=== PATIENT | female | born 1945 | race Caucasian/White ===

== ENCOUNTER 2018-03-03 18:56 | Emergency (ER) | payer MEDICARE, OTHER ==
[2018-03-03 19:28] VITALS: BP 121/44
[2018-03-03] MEDS ORDERED: Ondansetron INJ* 2 MG/ML VIAL IV ONE (19:30)
[2018-03-03] MEDS ORDERED: NS 0.9% 1000 ML* 1,000 ML IV ONE (19:31)
--- NOTE | 2018-03-03 19:53 | UC ---
Beti Rosado Elizabeth, scribed for Reshma Hernandez MD on 03/03/18 at 1933 . General HPI - HPI Summary HPI Summary: This patient is a 72 year old F presenting to [facility] accompanied by her neighbor with a chief complaint of right hand a cat bite to right hand occurring this morning as nausea since 16:00. The patient reports that she has been under a lot of stress recently. She her recently , had to surrender her cats today, and is in the process of being evicted. The patient reports that her cats fought her when she tried to put them in cages and they bit her right hand and her left leg. The pt had progressive swelling and discoloration of the right hand and her neighbor convinced her to come. Pt states upon arrival to the she had need for BM. Pt went into bathroom - had large, diarrhea BM - no blood, no black. pt then repeated episodes of emesis. Pt became diaphoretic and pale. Pt's neighbor drove her to . Patient denies shortness of breath, chest pain, abdominal pain, or hematemesis. The patient has hx of HTN, diabetes, HCL. The patient takes Metformin and Glipizide. Patient denies hx of OH or CVA. Pt states tdap < 10 years Pt's medications reviewed - History of Current Complaint Stated Complaint: CAT ATTACK Time Seen by Provider: 03/03/18 19:18 Hx Obtained From: Patient Onset/Duration: Sudden Onset, Lasting Hours, Still Present Onset Severity: Mild Current Severity: None Pain Intensity: 0 Aggravating: nothing Alleviating: nothing Associated Signs & Symptoms: Positive: Edema - in right hand, Nausea, Vomiting, Other - cat bites on right hand, nausea. Negative: Chest Pain, Hematemesis - Allergy/Home Medications Allergies/Adverse Reactions: Allergies Allergy/AdvReac Type Severity Reaction Status Date / Time Penicillins Allergy Unknown Verified 03/03/18 19:47 Reaction Details Home Medications: Home Medications Atenolol 25 mg PO QPM 03/03/18 [History Confirmed 03/03/18] Lisinopril 10 mg PO QAM 03/03/18 [History Confirmed 03/03/18] Metformin HCl [Fortamet] 1,000 mg PO BID 03/03/18 [History Confirmed 03/03/18] PMH/Surg Hx/FS Hx/Imm Hx Previously Healthy: No Endocrine History: Diabetes Cardiovascular History: Hypertension Other Cardiovascular History: HCL - Surgical History Surgery Procedure, Year, and Place: knee surgery 2011 - Family History Known Family History: Positive: Hypertension, Diabetes - Social History Occupation: Retired Lives: Alone Alcohol Use: None Substance Use Type: None Smoking Status (MU): Never Smoked Tobacco Review of Systems Skin: Other - warmth, redness, cat bites on right hand Respiratory: Negative - negative shortness of breath Cardiovascular: Negative - negative chest pain Gastrointestinal: Vomiting, Nausea All Other Systems Reviewed And Are Negative: Yes Physical Exam - Summary Physical Exam Summary: Vital Signs Reviewed: Yes A+Ox3, pallor, mild diaphoresis. Eyes: Conjunctiva Clear, DEBORAH. EOM intact and full ENT: Hearing grossly normal TM x 2 clear, mmoist, uvula midline, no exudate, no erythema Neck: Positive: Supple Respiratory: Positive: No respiratory distress, No accessory muscle use + CTA throughout no w/r Cardiovascular: RRR nl s1, s2 no m/r CBT <2 sec mild bradycardia abd soft + BS nt/nd no guarding, no distension Musculoskeletal Exam: PLASENCIA x 4 without difficulty Strength Intact, ROM Intact Neurological: Positive: Alert, + sensation throughout Psychological: Positive: Normal Response To Family Skin: Positive: no rash, no ecchymosis, pallor, mild diaphoresis Right hand: Pt with multiple puncture wound right 3/4 fingers, and dorsum + ecchymosis, erythema and warmth Pt with discomfort with flexion 3 and 4 at PIP joints secind to edema Pt with small puncture x 2 to left lateral LE Triage Information Reviewed: Yes Vital Signs: Initial Vital Signs Temp 95.9 F 03/03/18 19:17 Pulse 55 03/03/18 19:17 Resp 18 03/03/18 19:17 BP 121/44 03/03/18 19:17 Pulse Ox 99 03/03/18 19:17 Diagnostics - EKG Cardiac Rate: NL, Bradycardia Cardiac Rhythm: Sinus: Normal - invert T wave 2, NO STEMI ST Segment: Normal Course/Dx - Course Course Of Treatment: Pt with DM. HTN, HLD - pt presents for eval of cat bite occuring earlier today. Pt withprogressive nausea since 4pm in UC pt with epsiode of diarrhea and repeated emesis with near syncope. Pt with edema and swelling right hand. Pt with pallor and diaphoresis - Differential Dx - Multi-Symptom Provider Diagnoses: cat bite. persistent vomiting. near syncope - Physician Notifications Discussed Patient Care With: Dr. Ingram - gave report 1930 - aware of plan to transfer Discharge - Sign-Out/Discharge Documenting (check all that apply): Discharge/Admit/Transfer - Discharge Plan Condition: Stable Disposition: HOME Discharge Disposition Comment: discharged by ambulance to ER Referrals: No Primary Care Phys,NOPCP [Primary Care Provider] - - Billing Disposition and Condition Condition: STABLE Disposition: Home The documentation as recorded by the Beti jacques Elizabeth accurately reflects the service I personally performed and the decisions made by me, Reshma Hernandez MD.
== END 2018-03-03 20:05 | disposition home or self-care (01) ==
LOC: UCEAST 18:56
DX: S60.572A Other superficial bite of hand of left hand, initial encounter (principal); W55.01XA Bitten by cat, initial encounter; Y93.9 Activity, unspecified; Y99.9 Unspecified external cause status; R11.2 Nausea with vomiting, unspecified; R55 Syncope and collapse
CPT/HCPCS: 93005; 99203; G0463; J2405

== ENCOUNTER 2018-03-03 20:14 | Inpatient (IN) | payer MEDICARE ==
[2018-03-03] MEDS ORDERED: Clindamycin 600 MG IVPREMIX(* 600 MG/50 ML SDV IV ONE (20:33)
[2018-03-03 21:16] LABS: ABS Basophils 0 10^3/ul (0-0.2); ABS Eosinophils 0.1 10^3/ul (0-0.6); ABS Lymphocytes 1.2 10^3/ul (1.0-4.8); ABS Monocytes 0.7 10^3/ul (0-0.8); ABS Neutrophils 10.1 10^3/ul (1.5-7.7); ABS Nucleated RBC 0 10^3/ul; Eosinophil % 0.5 % (0-6); Hematocrit 30 % (35-47); Hemoglobin 10.2 g/dl (12.0-16.0); Lymphocyte % 10.3 % (25-47); Mean Corpuscular HGB Conc 34 g/dl (31-36); Mean Corpuscular Hemoglobin 30 pg (27-31); Mean Corpuscular Volume 87 fL (80-97); Nucleated Red Blood Cells % 0; Platelet Count 289 10^3/ul (150-450); Red Blood Count 3.42 10^6/ul (4.00-5.40); Red Cell Distribution Width 13 % (10.5-15); White Blood Count 12.1 10^3/ul (3.5-10.8)
--- NOTE | 2018-03-03 21:33 | RAD ---
Indication: Right hand pain. 4 views of the right hand demonstrates degenerative changes of the trapezium first metacarpal joint. Degenerative changes of the second through fifth proximal and distal interphalangeal joint is noted. No fracture is noted. IMPRESSION: Degenerative changes of the first carpal metacarpal joint as well as in the proximal and distal interphalangeal joints.
[2018-03-03 21:34] LABS: EGFR Non-African American 54.5 (>60)
[2018-03-03] MEDS: NS 0.9% 1000 ML* 1,000 ML IV SCH (23:10)
--- NOTE | 2018-03-03 23:28 | HP ---
H&P (Free Text) History and Physical: PCP: Simin Jane MD Date/Time: 03/03/2018 2320 CC: multiple cat bites HPI: Mrs Pavon is a 72YO female HX DM2, HTN, HLD who was attempting to cage her 3 cats to surrender them to the [facility] when on clawed her L ankle and another repetitively bit the dorsum of her R hand. This occurred around 1230 today. She had some mild nausea afterwards, but denies emesis, diarrhea, F/C, sweats, chest pain, SOB, or other issues. Due to the potential severity of hand infections and the likelihood of infection in this setting, request was made for observation overnight for initial IV ABX. She reports her tetanus is up-to- date & that her animals vaccines are NOT up-to-date, but they have been strictly indoor animals for the past 3 years. Animal control has been notified per ED. PMedHx DM2 HTN HLD anxiety depression vocal tremor OAB Ambulatory Orders ALPRAZolam TAB* [Xanax TAB*] 0.5 mg PO QAM 03/03/18 ALPRAZolam TAB* [Xanax TAB*] 1 mg PO BEDTIME PRN 03/03/18 Ascorbic Acid TAB* [Vitamin C TAB*] 500 mg PO BID 03/03/18 Aspirin EC TAB* [Ecotrin EC Low Dose 81 MG*] 81 mg PO DAILY 03/03/18 Atenolol TAB* [Tenormin TAB* 25 MG] 25 mg PO DAILY 03/03/18 Calcium Carbonate/Vitamin D3 [Calcium 500 + Vit D Caplet] 1 tab PO BID 03/03/18 Citalopram TAB* [CeleXA TAB*] 10 mg PO QPM 03/03/18 Lisinopril/HCTZ 20/12.5(NF) [Zestoretic 20/12.5(NF)] 1 tab PO DAILY 03/03/18 Mv-Min/Iron/Folic/Calcium/Vitk [Women's Daily Formula Tablet] 1 each PO DAILY Oxybutynin TAB* [Ditropan TAB*] 5 mg PO BID 03/03/18 Primidone TAB(*) [Mysoline TAB(*)] 100 mg PO BID 03/03/18 Sertraline* [Zoloft*] 100 mg PO QAM 03/03/18 amLODIPine TAB* [Norvasc 5 mg TAB*] 10 mg PO BEDTIME 03/03/18 metFORMIN* [Glucophage 1000 MG TAB *] 1,000 mg PO BID 03/03/18 Allergies Penicillins Allergy (Verified 03/03/18 19:47) Unknown Reaction Details PSurgHx ORID R tib/fib SocHx: no tobacco, alcohol, or recreational drugs; lives alone, 11/2017 ; full code status FamHx: reviewed & non-contributory ROS: as above, otherwise reviewed and all were negative vitals: Vital Signs Temp 36.7 C 03/03/18 23:15 Pulse 62 03/03/18 23:15 Resp 16 03/03/18 23:15 BP 176/77 03/03/18 23:15 Pulse Ox 99 03/03/18 23:15 Constitutional: NAD, normally developed, obese elderly white female HEENM: atraumatic; sclera/conjunctiva: anicteric/clear; hearing: clinically intact; oropharynx: clear, mucosa moist Neck: soft tissue: non-tender; thyroid: normal Pulmonary: clear to auscultation bilaterally, good aeration, no accessory muscle use CV: RR/RR, normal S1S2, no carotid bruit, no jugular venous distention, 2+ B DP/ PT, no edema Abdominal: soft, non-distended, non-tender, no rebound/guarding/rigidity, normoactive bowel sounds, no hepatosplenomegaly or masses, no costovertebral angle tenderness Musculoskeletal: general: grossly intact, non-tender Integumental: dorsum of R hand with multiple small puncture wounds with early ecchymotic changes and swelling, but no purulence, warmth, or induration; LLE just proximal to the lateral malleolus w/ small partial thickness scratches Psychiatric orientation: AA&O to PPS affect: calm mood: cooperative eye contact: fair content: tangential, seemingly reliable responses: timely insight: fair Testing: Lab Results 03/03/18 03/03/18 03/03/18 Range/Units 20:42 20:42 20:42 WBC 12.1 H (3.5-10.8) 10^3/ul RBC 3.42 L (4.00-5.40) 10^6/ul Hgb 10.2 L (12.0-16.0) g/dl Hct 30 L (35-47) % MCV 87 (80-97) fL MCH 30 (27-31) pg MCHC 34 (31-36) g/dl RDW 13 (10.5-15) % Plt Count 289 (150-450) 10^3/ul MPV 8.0 (7.4-10.4) um3 Neut % (Auto) 83.5 H (38-83) % Lymph % (Auto) 10.3 L (25-47) % Ward % (Auto) 5.6 (0-7) % Eos % (Auto) 0.5 (0-6) % Baso % (Auto) 0.1 (0-2) % Absolute Neuts (auto) 10.1 H (1.5-7.7) 10^3/ul Absolute Lymphs (auto) 1.2 (1.0-4.8) 10^3/ul Absolute Monos (auto) 0.7 (0-0.8) 10^3/ul Absolute Eos (auto) 0.1 (0-0.6) 10^3/ul Absolute Basos (auto) 0 (0-0.2) 10^3/ul Absolute Nucleated RBC 0 10^3/ul Nucleated RBC % 0 Sodium 126 L (135-145) mmol/L Potassium 4.3 (3.5-5.0) mmol/L Chloride 92 L (101-111) mmol/L Carbon Dioxide 27 (22-32) mmol/L Anion Gap 7 (2-11) mmol/L BUN 15 (6-24) mg/dL Creatinine 1.00 H (0.51-0.95) mg/dL Est GFR ( Amer) 65.9 (>60) Est GFR (Non-Af Amer) 54.5 (>60) BUN/Creatinine Ratio 15.0 (8-20) Glucose 190 H (70-100) mg/dL Lactic Acid 0.7 (0.5-2.0) mmol/L Calcium 9.2 (8.6-10.3) mg/dL Total Bilirubin 0.30 (0.2-1.0) mg/dL AST 13 (13-39) U/L ALT 12 (7-52) U/L Alkaline Phosphatase 68 (34-104) U/L Troponin I 0.01 (<0.04) ng/mL Total Protein 6.8 (6.4-8.9) g/dL Albumin 4.1 (3.2-5.2) g/dL Globulin 2.7 (2-4) g/dL Albumin/Globulin Ratio 1.5 (1-3) Lipase 44 (11.0-82.0) U/L XRY R hand, personally reviewed: IMPRESSION: Degenerative changes of the first carpal metacarpal joint as well as in the proximal and distal interphalangeal joints. Impression: 72F HX DM2, HTN, HLD presents after cat attack w/ multiple bite wounds to dorsum of R hand & scratches to lateral L ankle DIAGNOSIS & PLAN Primary multiple cat bites to dorsum of R hand : IV clindamycin as she is PEN allergic : IVFs : trend WBC & temperature curves : supportive care hypoNatremia : D/C HCTZ Secondary DM2 : check A1c : continue metformin : correctional insulin : ACHS glucometry : consistent carb diet HTN : continue lisinopril, atenolol, & amlodipine : D/C HCTZ 2nd hypoNatremia, as above HLD : heart healthy diet anxiety : continue alprazolam depression : continue sertraline : hold citalopram 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
[2018-03-04] MEDS ORDERED: Ondansetron ODT TAB* 4 MG PO PRN (00:05)
[2018-03-04] MEDS ORDERED: Melatonin 3 MG TAB PO PRN (00:05)
[2018-03-04] MEDS ORDERED: Acetaminophen TAB* 325 MG PO PRN (00:05)
[2018-03-04] MEDS ORDERED: ALPRAZolam TAB* 0.5 MG PO PRN (00:07)
[2018-03-04] MEDS ORDERED: hydrALAZINE IV* 20 MG/ML VIAL IV PRN (00:09)
[2018-03-04] MEDS: amLODIPine TAB* 5 MG PO SCH ×2 (01:21→20:54)
[2018-03-04] MEDS: Clindamycin 600 MG IVPREMIX(* 600 MG/50 ML SDV IV SCH ×3 (05:03→21:53)
[2018-03-04] MEDS: Omeprazole CAP* 20 MG PO SCH (05:52)
[2018-03-04] MEDS: traMADol TAB* 50 MG PO PRN ×3 (05:56→20:51)
--- NOTE | 2018-03-04 06:20 | ED ---
Ariel Rosado Tiffany, scribed for Rudi Ingram MD on 03/03/18 at 2101 . Bite Injury/Animal - HPI Summary HPI Summary: 72 year old Romeo FABIAN from Urgent Care to [facility] accompanied by female neighbor complains of cat bites on dorsum of right hand since this morning. Symptoms aggravated by nothing. Symptoms alleviated by nothing. Patient reports right hand pain, right fingers pain. She also has cat scratches on her left ankle. Last tetanus shot "within 10 years." Earlier at Urgent Care, patient developed nausea, diaphoresis, near syncope. Also complained of vomiting and diarrhea. EKG done at Urgent Care. - History of Current Complaint Stated Complaint: ANIMAL BITE/VOMITING Time Seen by Provider: 03/03/18 20:32 Hx Obtained From: Patient Onset of Injury: Happened hours ago - this morning, Still Present Type of Bite: Pet - cat Aggravating Factor(s): Nothing Alleviating Factor(s): Nothing - Allergies/Home Medications Allergies/Adverse Reactions: Allergies Allergy/AdvReac Type Severity Reaction Status Date / Time Penicillins Allergy Unknown Verified 03/03/18 19:47 Reaction Details Home Medications: Home Medications ALPRAZolam TAB* [Xanax TAB*] 0.5 mg PO QAM 03/03/18 [History Confirmed 03/03/18] ALPRAZolam TAB* [Xanax TAB*] 1 mg PO BEDTIME PRN 03/03/18 [History Confirmed ] Ascorbic Acid TAB* [Vitamin C TAB*] 500 mg PO BID 03/03/18 [History Confirmed 03/03/18] Aspirin EC TAB* [Ecotrin EC Low Dose 81 MG*] 81 mg PO DAILY 03/03/18 [History Confirmed 03/03/18] Atenolol TAB* [Tenormin TAB* 25 MG] 25 mg PO DAILY 03/03/18 [History Confirmed 03/03/18] Calcium Carbonate/Vitamin D3 [Calcium 500 + Vit D Caplet] 1 tab PO BID 03/03/18 [History Confirmed 03/03/18] Citalopram TAB* [CeleXA TAB*] 10 mg PO QPM 03/03/18 [History Confirmed 03/03/18] Lisinopril/HCTZ 20/12.5(NF) [Zestoretic 20/12.5(NF)] 1 tab PO DAILY 03/03/18 [ History Confirmed 03/03/18] Mv-Min/Iron/Folic/Calcium/Vitk [Women's Daily Formula Tablet] 1 each PO DAILY [History Confirmed 03/03/18] Oxybutynin TAB* [Ditropan TAB*] 5 mg PO BID 03/03/18 [History Confirmed 03/03/18 ] Primidone TAB(*) [Mysoline TAB(*)] 100 mg PO BID 03/03/18 [History Confirmed ] Sertraline* [Zoloft*] 100 mg PO QAM 03/03/18 [History Confirmed 03/03/18] amLODIPine TAB* [Norvasc 5 mg TAB*] 10 mg PO BEDTIME 03/03/18 [History Confirmed 03/03/18] metFORMIN* [Glucophage 1000 MG TAB *] 1,000 mg PO BID 03/03/18 [History Confirmed 03/03/18] PMH/Surg Hx/FS Hx/Imm Hx Previously Healthy: No Endocrine/Hematology History: Reports: Hx Diabetes - Type 2 Cardiovascular History: Reports: Hx Hypertension Psychiatric History: Reports: Hx Depression - Surgical History Surgery Procedure, Year, and Place: knee surgery 2011 - Family History Known Family History: Positive: Hypertension, Diabetes - Social History Alcohol Use: None Hx Substance Use: No Substance Use Type: Reports: None Hx Tobacco Use: No Smoking Status (MU): Never Smoked Tobacco Review of Systems Positive: Skin Diaphoresis Positive: Vomiting, Diarrhea, Nausea Positive: Other - right hand pain, right fingers pain Positive: Other - cat bites on dorsum of right hand, cat scratches on left ankle Neurological: Other - near syncope All Other Systems Reviewed And Are Negative: Yes Physical Exam - Summary Physical Exam Summary: Appearance: Well appearing, no pain distress Skin: multiple punctured wounds on the dorsum of R hand that is erythematous and has ecchymosis, no erythema on the right arm, cat scratches on the left lower leg Head/face: normal Eyes: EOMI, DEBORAH ENT: normal Neck: supple, non-tender Respiratory: CTA, breath sounds present Cardiovascular: blowing systolic murmur Abdomen: non-tender, soft Bowel Sounds: present Musculoskeletal: normal, strength/ROM intact Neuro: normal, sensory motor intact, A&Ox3 Triage Information Reviewed: Yes Vital Signs On Initial Exam: Initial Vitals Pulse Pulse Ox 69 91 03/03/18 20:19 03/03/18 20:19 Vital Signs Reviewed: Yes Diagnostics - Vital Signs Vital Signs Temp Pulse Resp BP Pulse Ox 03/03/18 23:17 62 176/77 100 03/03/18 23:15 98.1 F 62 16 176/77 99 03/03/18 23:02 54 99 03/03/18 22:16 60 139/61 95 03/03/18 22:00 56 95 03/03/18 21:16 58 143/65 99 03/03/18 21:11 98.2 F 58 18 143/65 99 03/03/18 21:05 66 97 03/03/18 20:19 69 91 - Laboratory Lab Results: Lab Results 03/03/18 03/03/18 03/03/18 Range/Units 20:42 20:42 20:42 WBC 12.1 H (3.5-10.8) 10^3/ul RBC 3.42 L (4.00-5.40) 10^6/ul Hgb 10.2 L (12.0-16.0) g/dl Hct 30 L (35-47) % MCV 87 (80-97) fL MCH 30 (27-31) pg MCHC 34 (31-36) g/dl RDW 13 (10.5-15) % Plt Count 289 (150-450) 10^3/ul MPV 8.0 (7.4-10.4) um3 Neut % (Auto) 83.5 H (38-83) % Lymph % (Auto) 10.3 L (25-47) % Kent % (Auto) 5.6 (0-7) % Eos % (Auto) 0.5 (0-6) % Baso % (Auto) 0.1 (0-2) % Absolute Neuts (auto) 10.1 H (1.5-7.7) 10^3/ul Absolute Lymphs (auto) 1.2 (1.0-4.8) 10^3/ul Absolute Monos (auto) 0.7 (0-0.8) 10^3/ul Absolute Eos (auto) 0.1 (0-0.6) 10^3/ul Absolute Basos (auto) 0 (0-0.2) 10^3/ul Absolute Nucleated RBC 0 10^3/ul Nucleated RBC % 0 Sodium 126 L (135-145) mmol/L Potassium 4.3 (3.5-5.0) mmol/L Chloride 92 L (101-111) mmol/L Carbon Dioxide 27 (22-32) mmol/L Anion Gap 7 (2-11) mmol/L BUN 15 (6-24) mg/dL Creatinine 1.00 H (0.51-0.95) mg/dL Est GFR ( Amer) 65.9 (>60) Est GFR (Non-Af Amer) 54.5 (>60) BUN/Creatinine Ratio 15.0 (8-20) Glucose 190 H (70-100) mg/dL Hemoglobin A1c (4.0-5.6) % Lactic Acid 0.7 (0.5-2.0) mmol/L Calcium 9.2 (8.6-10.3) mg/dL Total Bilirubin 0.30 (0.2-1.0) mg/dL AST 13 (13-39) U/L ALT 12 (7-52) U/L Alkaline Phosphatase 68 (34-104) U/L Troponin I 0.01 (<0.04) ng/mL Total Protein 6.8 (6.4-8.9) g/dL Albumin 4.1 (3.2-5.2) g/dL Globulin 2.7 (2-4) g/dL Albumin/Globulin Ratio 1.5 (1-3) Lipase 44 (11.0-82.0) U/L 03/03/18 Range/Units 20:42 WBC (3.5-10.8) 10^3/ul RBC (4.00-5.40) 10^6/ul Hgb (12.0-16.0) g/dl Hct (35-47) % MCV (80-97) fL MCH (27-31) pg MCHC (31-36) g/dl RDW (10.5-15) % Plt Count (150-450) 10^3/ul MPV (7.4-10.4) um3 Neut % (Auto) (38-83) % Lymph % (Auto) (25-47) % Kent % (Auto) (0-7) % Eos % (Auto) (0-6) % Baso % (Auto) (0-2) % Absolute Neuts (auto) (1.5-7.7) 10^3/ul Absolute Lymphs (auto) (1.0-4.8) 10^3/ul Absolute Monos (auto) (0-0.8) 10^3/ul Absolute Eos (auto) (0-0.6) 10^3/ul Absolute Basos (auto) (0-0.2) 10^3/ul Absolute Nucleated RBC 10^3/ul Nucleated RBC % Sodium (135-145) mmol/L Potassium (3.5-5.0) mmol/L Chloride (101-111) mmol/L Carbon Dioxide (22-32) mmol/L Anion Gap (2-11) mmol/L BUN (6-24) mg/dL Creatinine (0.51-0.95) mg/dL Est GFR ( Amer) (>60) Est GFR (Non-Af Amer) (>60) BUN/Creatinine Ratio (8-20) Glucose (70-100) mg/dL Hemoglobin A1c 6.3 H (4.0-5.6) % Lactic Acid (0.5-2.0) mmol/L Calcium (8.6-10.3) mg/dL Total Bilirubin (0.2-1.0) mg/dL AST (13-39) U/L ALT (7-52) U/L Alkaline Phosphatase (34-104) U/L Troponin I (<0.04) ng/mL Total Protein (6.4-8.9) g/dL Albumin (3.2-5.2) g/dL Globulin (2-4) g/dL Albumin/Globulin Ratio (1-3) Lipase (11.0-82.0) U/L Result Diagrams: 03/03/18 20:42 03/03/18 20:42 Lab Statement: Any lab studies that have been ordered have been reviewed, and results considered in the medical decision making process. - Radiology Hand Radiology Interpretation Completed By: Radiologist - Degenerative changes of the first carpal metacarpal joint as well as in the proximal and distal interphalangeal joints. ED physician has reviewed this report. Bite Injury Course/Dx - Course Course Of Treatment: Patient with multiple Bites in the dorsum of the hand at very high risk for cellulitis. There is some ecchymosis there now. It is felt that she warrants several doses of IV antibiotics prior to discharge. X-ray shows no identifiable foreign body. This was updated. Hospitalist contacted and evaluated the patient and admitted. - Diagnoses Provider Diagnosis: Cat bite, Puncture wound of hand - Provider Notifications Discussed Care Of Patient With: Preet Bran Time Discussed With Above Provider: 23:00 Instructed by Provider To: Other - Dr. Bran, hospitalist, agrees to admit patient Discharge - Sign-Out/Discharge Documenting (check all that apply): Discharge/Admit/Transfer - ADMIT - Discharge Plan Condition: Stable Disposition: ADMITTED TO [facility] - Billing Disposition and Condition Condition: STABLE Disposition: Admitted to [facility] The documentation as recorded by the Ariel jacques Tiffany accurately reflects the service I personally performed and the decisions made by me, Rudi Ingram MD.
[2018-03-04 06:59] LABS: ABS Basophils 0 10^3/ul (0-0.2); ABS Eosinophils 0.1 10^3/ul (0-0.6); ABS Lymphocytes 2.4 10^3/ul (1.0-4.8); ABS Monocytes 0.7 10^3/ul (0-0.8); ABS Neutrophils 5.5 10^3/ul (1.5-7.7); ABS Nucleated RBC 0 10^3/ul; Eosinophil % 0.6 % (0-6); Hematocrit 27 % (35-47); Hemoglobin 9.4 g/dl (12.0-16.0); Lymphocyte % 27.8 % (25-47); Mean Corpuscular HGB Conc 35 g/dl (31-36); Mean Corpuscular Hemoglobin 31 pg (27-31); Mean Corpuscular Volume 87 fL (80-97); Mean Platelet Volume 7.9 um3 (7.4-10.4); Nucleated Red Blood Cells % 0; Platelet Count 274 10^3/ul (150-450); Red Blood Count 3.09 10^6/ul (4.00-5.40); Red Cell Distribution Width 13 % (10.5-15); White Blood Count 8.8 10^3/ul (3.5-10.8)
[2018-03-04] MEDS: Sertraline* 100 MG TAB PO SCH (07:24)
[2018-03-04] MEDS: Oxybutynin TAB* 5 MG PO SCH ×2 (07:24→20:54)
[2018-03-04] MEDS: ALPRAZolam TAB* 0.5 MG PO SCH (07:24)
[2018-03-04] MEDS: Atenolol TAB* 25 MG PO SCH (07:24)
[2018-03-04] MEDS: Lisinopril TAB* 10 MG PO SCH (07:24)
[2018-03-04] MEDS: Primidone TAB(*) 50 MG PO SCH ×2 (07:24→20:54)
[2018-03-04] MEDS: metFORMIN* 1,000 MG TAB PO SCH ×2 (07:25→20:54)
[2018-03-04] MEDS: Aspirin EC TAB* 81 MG TAB.EC PO SCH (07:25)
[2018-03-04 07:26] LABS: EGFR Non-African American 74.8 (>60)
[2018-03-04] MEDS: Insulin LISPRO* 1 UNITS UNIT SUBCUT SCH ×4 (08:09→21:50)
[2018-03-04] MEDS: NS 0.9% 1000 ML* 1,000 ML IV SCH (14:09)
--- NOTE | 2018-03-04 14:14 | PN ---
Subjective Date of Service: 03/04/18 Interval History: Pt seen and examined. Meds and labs reviewed. ROS: Denied MATHIS/dizziness, F/C, N/V, CP, SOB, increased cough, sputum production , abd pain, diarrhea, constipation, dysuria, myalgias, arthralgias, throat pain , and new skin lesions. The rest of the 14 point ROS are unremarkable. PHYSICAL EXAM: GEN APPEARANCE: Awake, not in acute distress HEENT: NC/AT, PERRLA, moist oral mucosa, (-) throat erythema NECK: Soft, supple, (-) cervical LAD, (-)JVD HEART: S1S2 WNL, RRR, 3/5 murmur old, No RG CHEST: CTA, BL, GAE, No W/R/R ABD: Soft, ND/NT, NABS 4x Q EXT: No C/C/R. dorsum of hand edematous and slightly erythematous the patient mentions has improved; LLE, lateral superficial abrasion slightly superior to lateral malleolus SKIN: Warm to touch PSYCH: No active psychosis, hallucinations, depression, SI/HI Objective Active Medications: Acetaminophen (Tylenol Tab*) 650 mg PO Q6H PRN PRN Reason: FEVER/PAIN Alprazolam (Xanax Tab*) 0.5 mg PO QAM [facility] Last Admin: 03/04/18 07:24 Dose: 0.5 mg Alprazolam (Xanax Tab*) 1 mg PO BEDTIME PRN PRN Reason: ANXIETY Amlodipine Besylate (Norvasc Tab*) 10 mg PO BEDTIME [facility] Last Admin: 03/04/18 01:21 Dose: 10 mg Aspirin (Aspirin Ec Tab*) 81 mg PO DAILY [facility] Last Admin: 03/04/18 07:25 Dose: 81 mg Atenolol (Tenormin Tab*) 25 mg PO DAILY [facility] Last Admin: 03/04/18 07:24 Dose: 25 mg Enoxaparin Sodium (Lovenox(*)) 40 mg SUBCUT Q24H [facility] Hydralazine HCl (Apresoline Iv*) 10 mg IV Q4H PRN PRN Reason: Systolic >170 Clindamycin HCl/Dextrose (Cleocin 600 Mg Ivpremix(*) Sdv) 600 mg in 50 mls @ 100 mls/hr IV Q8H [facility] Last Admin: 03/04/18 12:45 Dose: 100 mls/hr Sodium Chloride (Ns 0.9% 1000 Ml*) 1,000 mls @ 75 mls/hr IV PER RATE [facility] Last Admin: 03/04/18 14:09 Dose: 75 mls/hr Insulin Human Lispro (Humalog*) 0 units SUBCUT ACHS [facility]; Protocol Last Admin: 03/04/18 11:33 Dose: Not Given Lisinopril (Prinivil Tab*) 20 mg PO DAILY [facility] Last Admin: 03/04/18 07:24 Dose: 20 mg Melatonin (Melatonin) 3 mg PO BEDTIME PRN; Protocol PRN Reason: Sleep Metformin HCl (Glucophage*) 1,000 mg PO BID [facility] Last Admin: 03/04/18 07:25 Dose: 1,000 mg Omeprazole (Prilosec Cap*) 20 mg PO DAILY@0600 [facility] Last Admin: 03/04/18 05:52 Dose: 20 mg Ondansetron HCl (Zofran Odt Tab*) 4 mg PO Q6H PRN PRN Reason: n/v Oxybutynin Chloride (Ditropan Tab*) 5 mg PO BID [facility] Last Admin: 03/04/18 07:24 Dose: 5 mg Primidone (Mysoline Tab(*)) 100 mg PO BID [facility] Last Admin: 03/04/18 07:24 Dose: 100 mg Sertraline HCl (Zoloft*) 100 mg PO QAM [facility] Last Admin: 03/04/18 07:24 Dose: 100 mg Tramadol HCl (Ultram*) 50 mg PO Q6H PRN PRN Reason: PAIN Last Admin: 03/04/18 11:55 Dose: 50 mg Vital Signs - 8 hr 03/04/18 03/04/18 03/04/18 07:17 07:24 07:29 Temperature Pulse Rate 68 Respiratory 16 16 Rate Blood Pressure 146/70 (mmHg) O2 Sat by Pulse Oximetry 03/04/18 03/04/18 03/04/18 07:39 08:10 09:23 Temperature 98.4 F Pulse Rate 67 Respiratory 16 16 16 Rate Blood Pressure 159/64 (mmHg) O2 Sat by Pulse 99 Oximetry 03/04/18 03/04/18 03/04/18 11:09 11:55 12:55 Temperature 98.8 F Pulse Rate 53 Respiratory 14 16 16 Rate Blood Pressure 115/46 (mmHg) O2 Sat by Pulse 98 Oximetry Oxygen Devices in Use Now: None Result Diagrams: 03/04/18 06:49 03/04/18 06:49 Additional Lab and Data: Lab Results 03/03/18 03/03/18 03/03/18 Range/Units 20:42 20:42 20:42 WBC 12.1 H (3.5-10.8) 10^3/ul RBC 3.42 L (4.00-5.40) 10^6/ul Hgb 10.2 L (12.0-16.0) g/dl Hct 30 L (35-47) % MCV 87 (80-97) fL MCH 30 (27-31) pg MCHC 34 (31-36) g/dl RDW 13 (10.5-15) % Plt Count 289 (150-450) 10^3/ul MPV 8.0 (7.4-10.4) um3 Neut % (Auto) 83.5 H (38-83) % Lymph % (Auto) 10.3 L (25-47) % Republic % (Auto) 5.6 (0-7) % Eos % (Auto) 0.5 (0-6) % Baso % (Auto) 0.1 (0-2) % Absolute Neuts (auto) 10.1 H (1.5-7.7) 10^3/ul Absolute Lymphs (auto) 1.2 (1.0-4.8) 10^3/ul Absolute Monos (auto) 0.7 (0-0.8) 10^3/ul Absolute Eos (auto) 0.1 (0-0.6) 10^3/ul Absolute Basos (auto) 0 (0-0.2) 10^3/ul Absolute Nucleated RBC 0 10^3/ul Nucleated RBC % 0 Sodium 126 L (135-145) mmol/L Potassium 4.3 (3.5-5.0) mmol/L Chloride 92 L (101-111) mmol/L Carbon Dioxide 27 (22-32) mmol/L Anion Gap 7 (2-11) mmol/L BUN 15 (6-24) mg/dL Creatinine 1.00 H (0.51-0.95) mg/dL Est GFR ( Amer) 65.9 (>60) Est GFR (Non-Af Amer) 54.5 (>60) BUN/Creatinine Ratio 15.0 (8-20) Glucose 190 H (70-100) mg/dL Hemoglobin A1c (4.0-5.6) % Lactic Acid 0.7 (0.5-2.0) mmol/L Calcium 9.2 (8.6-10.3) mg/dL Total Bilirubin 0.30 (0.2-1.0) mg/dL AST 13 (13-39) U/L ALT 12 (7-52) U/L Alkaline Phosphatase 68 (34-104) U/L Troponin I 0.01 (<0.04) ng/mL Total Protein 6.8 (6.4-8.9) g/dL Albumin 4.1 (3.2-5.2) g/dL Globulin 2.7 (2-4) g/dL Albumin/Globulin Ratio 1.5 (1-3) Lipase 44 (11.0-82.0) U/L 03/03/18 Range/Units 20:42 WBC (3.5-10.8) 10^3/ul RBC (4.00-5.40) 10^6/ul Hgb (12.0-16.0) g/dl Hct (35-47) % MCV (80-97) fL MCH (27-31) pg MCHC (31-36) g/dl RDW (10.5-15) % Plt Count (150-450) 10^3/ul MPV (7.4-10.4) um3 Neut % (Auto) (38-83) % Lymph % (Auto) (25-47) % Republic % (Auto) (0-7) % Eos % (Auto) (0-6) % Baso % (Auto) (0-2) % Absolute Neuts (auto) (1.5-7.7) 10^3/ul Absolute Lymphs (auto) (1.0-4.8) 10^3/ul Absolute Monos (auto) (0-0.8) 10^3/ul Absolute Eos (auto) (0-0.6) 10^3/ul Absolute Basos (auto) (0-0.2) 10^3/ul Absolute Nucleated RBC 10^3/ul Nucleated RBC % Sodium (135-145) mmol/L Potassium (3.5-5.0) mmol/L Chloride (101-111) mmol/L Carbon Dioxide (22-32) mmol/L Anion Gap (2-11) mmol/L BUN (6-24) mg/dL Creatinine (0.51-0.95) mg/dL Est GFR ( Amer) (>60) Est GFR (Non-Af Amer) (>60) BUN/Creatinine Ratio (8-20) Glucose (70-100) mg/dL Hemoglobin A1c 6.3 H (4.0-5.6) % Lactic Acid (0.5-2.0) mmol/L Calcium (8.6-10.3) mg/dL Total Bilirubin (0.2-1.0) mg/dL AST (13-39) U/L ALT (7-52) U/L Alkaline Phosphatase (34-104) U/L Troponin I (<0.04) ng/mL Total Protein (6.4-8.9) g/dL Albumin (3.2-5.2) g/dL Globulin (2-4) g/dL Albumin/Globulin Ratio (1-3) Lipase (11.0-82.0) U/L Assess/Plan/Problems-Billing Assessment: - Patient Problems (1) Cat bite Current Visit: Yes Status: Acute Code(s): W55.01XA - BITTEN BY CAT, INITIAL ENCOUNTER SNOMED Code(s): 847972146 Comment: -With cat scratch -Continue Clindamycin -Continue to follow cultures -D/W Dr. Galdamez to see whether all vaccinations she needs is appropriate given her pets have not updated their vaccination in 3 years (2) Hyponatremia Current Visit: Yes Status: Acute Code(s): E87.1 - HYPO-OSMOLALITY AND HYPONATREMIA SNOMED Code(s): 10555179 Comment: -Euvolemic -Possibly due to SIADH due to possible stress/pain from above? -Continue watchful waiting -Continue to hold HCTZ (3) Diabetes 1.5, managed as type 2 Current Visit: Yes Status: Acute Code(s): E10.9 - TYPE 1 DIABETES MELLITUS WITHOUT COMPLICATIONS SNOMED Code(s): 715924830 Comment: -Continue Insulin sliding scale -Continue Metformin (4) Hypertension Current Visit: Yes Status: Acute Code(s): I10 - ESSENTIAL (PRIMARY) HYPERTENSION SNOMED Code(s): 47184662 Comment: -Continue Amlodipine, atenolol, and Lisinopril -Well-controlled (5) Anxiety Current Visit: Yes Status: Acute Code(s): F41.9 - ANXIETY DISORDER, UNSPECIFIED SNOMED Code(s): 35975823 Comment: -Continue Alprazolam (6) DVT prophylaxis Current Visit: Yes Status: Acute Code(s): [id number] - SNOMED Code(s): 249090687 Comment: -Will place pt on Lovenox Status and Disposition: -Will await official input from Dr. Galdamez -Will await culture data -Possible D/C in AM
[2018-03-04] MEDS ORDERED: Tetan/Diph/Pertus SYR(Tdap)* 0.5 ML SYR(BOOSTRIX) use SYR IM ONE (14:21)
[2018-03-04] MEDS ORDERED: Enoxaparin(*) 40 MG/0.4 ML SYR SUBCUT SCH (15:00)
--- NOTE | 2018-03-04 15:55 | CONS ---
CONSULTATION REPORT: DATE OF CONSULT: 03/04/18 REQUESTING PHYSICIAN: Dr. Nugent. CONSULTING SERVICE: Infectious Disease. REASON FOR CONSULTATION: Cellulitis. IMPRESSION: 1. Cellulitis, right dorsum of the hand after a cat bite with some decreased range of motion. No fluctuance or crepitus to suggest abscess. I think the range of motion decreased from edema and not from tenosynovitis given that it has only been about 24 hours since the cat bite. Additionally, she feels the swelling and range of motion is improving since she has been here in the last 12 hours on clindamycin. 2. Listed PENICILLIN allergy, which was not an allergy. She was told not to take it because it did not work for her when she was a teenager. 3. Type 2 diabetes. 4. The cat bite was from her cat that was not up-to-date on the rabies vaccine , had been vaccinated in the past though. The cat had been behaving normally until she tried to put it into a cage for the first time in its life, so I think it is a low risk exposure. It is also an indoor cat. RECOMMENDATIONS: 1. Continue another 24 hours of clindamycin, follow the hand and then as long as she is continuing to improve, she could take clindamycin 300 mg by mouth 3 times a day for another 7 days. 2. Tdap now, her last one was about 8 years ago. 3. I put in a call to the [facility] to discuss the possibility of rabies exposure and get their recommendation. HISTORY OF PRESENT ILLNESS: This is a 72-year-old woman with diabetes, admitted with right hand infection. She was trying to crate her cats to get rid of them because of a resource issue. The one cat would not go in the cage and bit her in the right hand. Her last tetanus was about 8 plus years ago. She was seen in [facility] last night and transferred to the emergency room because of right hand swelling, redness. She was started on clindamycin. White count when she got here was 13,000, it is down to 8000 today. She has had no fever. The range of motion loss that she had had is improving, though not back to baseline. She has no other wounds except for some old scratches on the left leg from another cat. The cat that bit her has had rabies vaccines in the past, is an indoor cat, but was not up-to-date within the last couple of years. Cat had been acting normally up until the attempt at caging. PAST MEDICAL HISTORY: 1. Diabetes, type 2. 2. Hypertension. 3. Hyperlipidemia. 4. Anxiety. 5. Depression. MEDICATIONS: 1. Tylenol. 2. Xanax as needed. 3. Amlodipine. 4. Aspirin. 5. Atenolol. 6. Clindamycin 600 mg every 8 hours. 7. Enoxaparin. 8. Lisinopril. 9. Melatonin. 10. Metformin. 11. Oxybutynin. 12. Primidone. 13. Sertraline. 14. Tramadol. ALLERGIES: PENICILLIN, not an actual allergy. SOCIAL HISTORY: She lives in [place]. Recently . Has cats. Nonsmoker. FAMILY HISTORY: No recurrent infections. REVIEW OF SYSTEMS: All negative except as noted above. PHYSICAL EXAMINATION: Vital Signs: Temperature 37, heart rate 50, respiratory rate 14, blood pressure 115/46, oxygen saturation is 98% on room air. In general, she is awake and not in distress. Neurologic: She is oriented x3. Follows all commands. Heart: Regular rate and rhythm without murmurs, rubs, or gallops. Lungs are clear to auscultation bilaterally. Abdomen: Soft, nontender, nondistended. There are bowel sounds present. Skin: There is no rash or splinter hemorrhages. Musculoskeletal: Dorsum of the right hand, there is diffuse trace edema. There is decreased range of motion of the 2nd through 4th fingers. There is no crepitus. LABORATORY DATA: White blood cell count 8, hemoglobin 9, platelets 274,000. Creatinine 0.7. Please see impressions and recommendations outlined above, which I have discussed with Dr. Nugent. Thanks for asking me to see Ms. Pavon in consultation. [id number]/[facility] #: [id number] CONSTANZA
[2018-03-04] MEDS ORDERED: amLODIPine TAB* 5 MG PO SCH (21:00)
[2018-03-05] MEDS: traMADol TAB* 50 MG PO PRN (03:41)
[2018-03-05] MEDS: NS 0.9% 1000 ML* 1,000 ML IV SCH (03:47)
[2018-03-05] MEDS: Clindamycin 600 MG IVPREMIX(* 600 MG/50 ML SDV IV SCH ×2 (04:53→13:13)
[2018-03-05 06:27] LABS: ABS Basophils 0 10^3/ul (0-0.2); ABS Eosinophils 0.1 10^3/ul (0-0.6); ABS Lymphocytes 2.6 10^3/ul (1.0-4.8); ABS Monocytes 0.6 10^3/ul (0-0.8); ABS Neutrophils 2.8 10^3/ul (1.5-7.7); ABS Nucleated RBC 0 10^3/ul; Eosinophil % 2.2 % (0-6); Hematocrit 27 % (35-47); Hemoglobin 9.5 g/dl (12.0-16.0); Lymphocyte % 42.6 % (25-47); Mean Corpuscular HGB Conc 35 g/dl (31-36); Mean Corpuscular Hemoglobin 31 pg (27-31); Mean Corpuscular Volume 88 fL (80-97); Mean Platelet Volume 7.9 um3 (7.4-10.4); Nucleated Red Blood Cells % 0.1; Platelet Count 250 10^3/ul (150-450); Red Cell Distribution Width 13 % (10.5-15); White Blood Count 6.1 10^3/ul (3.5-10.8)
[2018-03-05] MEDS: Omeprazole CAP* 20 MG PO SCH (06:30)
[2018-03-05 06:46] LABS: EGFR Non-African American 96.4 (>60)
[2018-03-05] MEDS: Insulin LISPRO* 1 UNITS UNIT SUBCUT SCH ×2 (07:47→11:37)
[2018-03-05] MEDS: ALPRAZolam TAB* 0.5 MG PO SCH (07:58)
[2018-03-05] MEDS: Aspirin EC TAB* 81 MG TAB.EC PO SCH (07:59)
[2018-03-05] MEDS: Atenolol TAB* 25 MG PO SCH (08:00)
[2018-03-05] MEDS: Lisinopril TAB* 10 MG PO SCH (08:01)
[2018-03-05] MEDS: metFORMIN* 1,000 MG TAB PO SCH (08:01)
[2018-03-05] MEDS: Oxybutynin TAB* 5 MG PO SCH (08:02)
[2018-03-05] MEDS: Sertraline* 100 MG TAB PO SCH (08:02)
[2018-03-05] MEDS: Primidone TAB(*) 50 MG PO SCH (08:02)
[2018-03-05 11:45] VITALS: BP 132/54
--- NOTE | 2018-03-05 21:46 | DS ---
CC: Dr. Bran; Dr. Rudi Ingram; Dr. Aram Galdamez DISCHARGE SUMMARY: DATE OF ADMISSION: DATE OF DISCHARGE: 03/05/18 DISCHARGE DIAGNOSES: As follows: 1. Cellulitis, right dorsum of the hand, status post cat bite and scratch. 2. Hyponatremia, stable. 3. Hypertension. 4. Anxiety. DISCHARGE MEDICATIONS: As follows: 1. Tylenol 650 p.o. q.6 p.r.n. 2. Alprazolam 1 mg p.o. q.h.s. and 0.5 mg p.o. q.a.m. 3. Amlodipine 5 mg p.o. q.h.s. 4. Ascorbic acid 500 mg p.o. b.i.d. 5. Aspirin 81 mg p.o. daily. 6. Atenolol 25 mg p.o. daily. 7. Calcium carbonate/vitamin D3 one tab p.o. b.i.d. 8. Citalopram 10 mg p.o. q.p.m. 9. Clindamycin 300 mg p.o. t.i.d. for 7 more days. 10. Floranex tablets 1 tab p.o. daily for the next 10 days. 11. Lisinopril 40 mg p.o. daily. 12. Metformin 1000 mg p.o. b.i.d. 13. Multivitamin and mineral supplementation 1 tablet p.o. daily. 14. Oxybutynin 5 mg p.o. b.i.d. 15. Primidone 100 mg p.o. b.i.d. 16. Sertraline 100 mg p.o. q.a.m. 17. Tramadol 50 mg p.o. q.6 p.r.n. for the next 3 days. Any prescriptions for her pain meds will need to be refilled with her primary care physician. HISTORY OF PRESENT ILLNESS/HOSPITAL COURSE: The patient is a 72-year-old lady with history of diabetes, admitted with right hand infection, status post cat scratch and bite. She mentions that she has 3 cats and is unable to afford care for them at this point and hence she wanted to return her [facility] to the [facility]. She was able to return 2 of them; however, one cat while she was placing the cat in the box, bit her right hand as well as scratched the lateral side of her leg right above the lateral malleolus on the left. She then presented to the ED for further evaluation and was diagnosed to have cellulitis due to a cat bite and scratch. She was placed on clindamycin and Dr. Galdamez's consult has been requested who then proceeded to evaluate the patient. The patient was given Tdap under his advisement given the patient was unable to be clear about her history of vaccinations. Dr. Galdamez has also contacted the [facility] to discuss possibility of rabies exposure to get their recommendation and per Dr. Galdamez, the Health Department will monitor her cat. She had been advised to follow up/call her PCP within 3 days post discharge to call [facility] when she feels that she is getting sicker and have subsequently been advised by her PCP to see someone immediately unless the case is felt to be an emergency. I will defer further follow up and workup of her otherwise stable asymptomatic euvolmic hyponatremia. Otherwise, she was advised to go to the ER if she feels that it is an emergency. She was also advised to call my office if she has any questions regarding her discharge plan , prescriptions and any further clarifications and she was also advised to stay away from the hot sun and drink more fluids when warm or more active as discussed prior to her discharge. She is to wait for the [facility] to remove her remaining cat from her home and further subsequent monitoring. She is to take her medications as prescribed. PHYSICAL EXAMINATION: Reveals the most recent vital signs of records with blood pressure of 132/54, 50 beats per minute heart rate, 97.8 degrees Fahrenheit, saturating at 100%. General Appearance: The patient is awake, alert, and oriented x3, not in acute distress. HEENT: Normocephalic, atraumatic. PERRLA. Extraocular muscles intact. Negative for icterus. Moist oral mucosa. Negative throat erythema. Neck is soft, supple with no cervical lymphadenopathy, no JVD. Heart: S1, S2 within normal limits. Regular rate and rhythm. No murmurs, rubs, or gallops. Chest: Clear to auscultation bilaterally. Good air entry. No wheezes, rales, or rhonchi. Abdomen is soft, nondistended, nontender. Normoactive bowel sounds x4 quadrants. Extremities: No cyanosis, clubbing. She does have significant edema of the right hand and distal portion of her dorsal forearm; however, this is significantly improved from yesterday and her recent admission. Psychiatric: No active psychosis, depression, suicidal nor homicidal ideations. Skin is warm to touch. TIME SPENT: The total time spent evaluating the patient, reviewing pertinent data and appropriate documentation is greater than 30 minutes. [id number]/[facility] #: [id number] MTDJoni
== END 2018-03-05 13:45 | disposition home or self-care (01) | DRG 603 ==
LOC: ED 20:14 → MED 23:22 → OBSVTOIN 03-04 10:00
PROVIDERS: ADMIT Hospitalist; ATTEND Student in an Organized Health Care Education/Training Program
DX: L03.113 Cellulitis of right upper limb (principal); E87.1 Hypo-osmolality and hyponatremia; S61.451A Open bite of right hand, initial encounter; I10 Essential (primary) hypertension; F41.9 Anxiety disorder, unspecified; S90.512A Abrasion, left ankle, initial encounter; E11.9 Type 2 diabetes mellitus without complications; F32.9 Major depressive disorder, single episode, unspecified; E66.9 Obesity, unspecified; G25.2 Other specified forms of tremor; E78.5 Hyperlipidemia, unspecified; N32.81 Overactive bladder; Z88.0 Allergy status to penicillin; Z82.49 Family history of ischemic heart disease and other diseases of the circulatory system; W55.01XA Bitten by cat, initial encounter; Y92.009 Unspecified place in unspecified non-institutional (private) residence as the place of occurrence of the external cause; Z68.31 Body mass index [BMI] 31.0-31.9, adult; Z83.3 Family history of diabetes mellitus; Z79.82 Long term (current) use of aspirin; Z79.84 Long term (current) use of oral hypoglycemic drugs
CPT/HCPCS: 36415; 80048; 80053; 83036; 83605; 83690; 83735; 84100; 84484; 85025; 87040; 90715; 93005; 99203; 99285; A9270-GY; G0378; G0463; G8987-GO-CI; G8988-GO-CI; G8989-GO-CI; J1650; J2405

== ENCOUNTER 2018-03-10 07:54 | Inpatient (IN) | payer MEDICARE ==
[2018-03-10 09:07] LABS: ABS Basophils 0 10^3/ul (0-0.2); ABS Eosinophils 0.1 10^3/ul (0-0.6); ABS Lymphocytes 1.8 10^3/ul (1.0-4.8); ABS Monocytes 0.4 10^3/ul (0-0.8); ABS Neutrophils 3.4 10^3/ul (1.5-7.7); ABS Nucleated RBC 0 10^3/ul; Eosinophil % 1.9 % (0-6); Hematocrit 30 % (35-47); Hemoglobin 10.7 g/dl (12.0-16.0); Lymphocyte % 31.6 % (25-47); Mean Corpuscular HGB Conc 36 g/dl (31-36); Mean Corpuscular Hemoglobin 31 pg (27-31); Mean Corpuscular Volume 86 fL (80-97); Mean Platelet Volume 7.8 um3 (7.4-10.4); Nucleated Red Blood Cells % 0.1; Platelet Count 313 10^3/ul (150-450); Red Cell Distribution Width 13 % (10.5-15); White Blood Count 5.8 10^3/ul (3.5-10.8)
[2018-03-10] MEDS ORDERED: Lisinopril TAB* 10 MG PO ONE (09:07)
[2018-03-10] MEDS ORDERED: Metoclopramide IV* 5 MG/ML 2 ML VIAL IV SLOW PU ONE (09:07)
[2018-03-10] MEDS ORDERED: diPHENhydraMINE IV* 50 MG/ML 1 ml VIAL (BENADRYL) SLOW PUSH ONE (09:07)
[2018-03-10] MEDS ORDERED: Clindamycin 600 MG IVPREMIX(* 600 MG/50 ML SDV IV ONE (09:07)
[2018-03-10 09:09] LABS: Urine Appearance Clear; Urine Blood Negative (Negative); Urine Color Straw; Urine Ketones Trace (Negative); Urine Protein Negative (Negative); Urine Specific Gravity 1.004 (1.010-1.030); Urine Urobilinogen Negative (Negative)
[2018-03-10 09:16] LABS: INR 0.91 (0.77-1.02)
--- NOTE | 2018-03-10 09:31 | RAD ---
INDICATION: Headaches. Vomiting. COMPARISON: None TECHNIQUE: Noncontrast axial source images were acquired from the skull base to the vertex. FINDINGS: Ventricles/sulci: There is mild age-related cortical atrophy. Brain parenchyma: There is no acute focal parenchymal finding, evidence of intracranial mass, or intracranial mass effect. Intracranial hemorrhage:None. Extra-axial spaces: There are no abnormal extra axial fluid collections or evidence of extra-axial mass. Calvarium: There is no calvarial fracture or other calvarial abnormality. Scalp: There is no evidence of scalp or extracalvarial soft tissue abnormality. Paranasal sinuses/mastoid: The paranasal sinuses and mastoid air cells are clear. Other: None. IMPRESSION: No acute intracranial findings
[2018-03-10] MEDS ORDERED: NS 0.9% 250 ML* 250 ML IV ONE (09:33)
--- NOTE | 2018-03-10 09:34 | RAD ---
HISTORY: VOMITING, WEAKNESS COMPARISONS: November 04, 2011 VIEWS: 1: frontal portable view of the chest at 9:12 AM FINDINGS: LINES AND TUBES: None. CARDIOMEDIASTINAL SILHOUETTE: The cardiomediastinal silhouette is normal for portable technique. PLEURA: The costophrenic angles are sharp. No pleural abnormalities are noted. LUNG PARENCHYMA: The lungs are clear. ABDOMEN: The upper abdomen is clear. There is no subphrenic gas. BONES AND SOFT TISSUES: No bone or soft tissue abnormalities are noted. IMPRESSION: NO ACTIVE CARDIOPULMONARY DISEASE.
[2018-03-10] MEDS ORDERED: traMADol TAB* 50 MG PO PRN (09:42)
[2018-03-10] MEDS ORDERED: hydrALAZINE IV* 20 MG/ML VIAL IV SLOW PU ONE (09:58)
[2018-03-10 11:38] LABS: EGFR Non-African American 82.3 (>60)
[2018-03-10] MEDS: Primidone TAB(*) 50 MG PO SCH ×2 (12:29→21:20)
[2018-03-10] MEDS: Lisinopril TAB* 10 MG PO SCH (12:32)
[2018-03-10] MEDS ORDERED: Dextrose 50% Syringe 50 ML* 25 GM/50 ML SYRINGE IV PUSH PRN (12:53)
[2018-03-10] MEDS ORDERED: NS 0.9% 1000 ML* 1,000 ML IV SCH (13:00)
[2018-03-10 14:00] LABS: Urine Appearance Clear; Urine Blood Negative (Negative); Urine Color Straw; Urine Ketones Trace (Negative); Urine Protein Negative (Negative); Urine Specific Gravity 1.003 (1.010-1.030); Urine Urobilinogen Negative (Negative)
[2018-03-10 14:14] LABS: INR 0.94 (0.77-1.02)
[2018-03-10] MEDS: Heparin VIAL(*) 5000 UNITS/ML VIAL (FIVE THOUSAND) SUBCUT SCH ×2 (14:38→21:21)
[2018-03-10] MEDS: Clindamycin CAP* 150 MG PO SCH ×2 (15:58→21:11)
[2018-03-10 17:40] LABS: EGFR Non-African American 83.6 (>60)
[2018-03-10] MEDS: Insulin LISPRO* 1 UNITS UNIT SUBCUT SCH (17:58)
--- NOTE | 2018-03-10 19:56 | HP ---
CC: Dr. Jane* HISTORY AND PHYSICAL: DATE OF ADMISSION: 03/10/18 PRIMARY CARE PROVIDER: Dr. Jane. ATTENDING PHYSICIAN WHILE IN THE HOSPITAL: Dr. Raheel Davidson* (report dictated by Cy Tate NP) CHIEF COMPLAINT: 1. Nausea. 2. Headache. 3. Vomiting. HISTORY OF PRESENT ILLNESS: Ms. Pavon is a 72-year-old female patient carrying a history of diabetes, hypertension, hyperlipidemia. She has a history of anxiety, former history of migraines. She also has history of depression, anxiety, focal tremor, and overactive bladder. She is coming into our emergency department today. She says that she woke up this morning, she was not feeling well. She was feeling nauseated. She had a headache, which she described as a sharp pressure in the right side of her head. She felt nauseated. Denied any photophobia to me and she said that she has been having this headache intermittently for the last couple of weeks. She says it has not been constant. It has been coming and going and it has not come on suddenly. It gets gradually worse when she does get the headache. She has had no fevers, neck stiffness, or confusion associated with this, but she was concerned because the headache was not going away. In fact, she saw her primary for this and was prescribed a medication and was told to stop taking it because it interacted with her medications. She does not remember the name of it. She also interestingly enough with this last week she had been attacked by her cats. She had a significant cellulitis to her right hand, which is now, she says is, much improved. She says she has been under lot of stress as well too. She says her recently and she had to get rid of all her 3 cats because they attacked her and she says this has caused her a lot of stress. She was concerned today because of the headache, the fact that she was feeling nauseated and she had vomited twice. She denied any fevers, chest pain. No shortness of breath. No abdominal pain. She says she is not feeling distended. She says she did have a bowel movement yesterday. She has been having diarrhea and again no abdominal pain and she has an appetite when she is not feeling nauseous. She came into the ED today, routine labs were checked, and it was noted that she was hyponatremic at 114, she was pretty hypertensive in the 180s, and because of this, we were asked to evaluate for admission. PAST MEDICAL HISTORY: Significant for: 1. Diabetes. 2. Hypertension. 3. Hyperlipidemia. 4. Anxiety. 5. Depression. 6. Focal tremor. 7. Overactive bladder. 8. History of migraines. PAST SURGICAL HISTORY: She has had a right lower extremity surgery. MEDICATIONS: Home medications include: 1. Tramadol 50 mg every 6 hours as needed. 2. Metformin 1000 mg p.o. b.i.d. 3. Norvasc 10 mg p.o. at bedtime. 4. Zoloft 100 mg p.o. daily. 5. Mysoline 100 mg p.o. b.i.d. 6. Ditropan 5 mg p.o. b.i.d. 7. Multivitamin 1 tablet daily. 8. Lisinopril 40 mg p.o. daily. 9. Acidophilus 1 chew p.o. daily. 10. Clindamycin 300 mg p.o. t.i.d. She is to stop this on Wednesday. Wednesday is her last day of dosing. 11. Celexa 10 mg daily. 12. Calcium 1 tablet p.o. b.i.d. 13. Atenolol 25 mg daily. 14. Aspirin 81 mg daily. 15. Vitamin C 500 mg p.o. b.i.d. 16. Tylenol 650 mg every 6 hours as needed. 17. Xanax 0.5 mg in the morning. 18. Xanax 1 mg at bedtime as needed. ALLERGIES TO MEDICATIONS: Include PENICILLIN. FAMILY HISTORY: Her mother was diabetic. Father had a history of CAD. SOCIAL HISTORY: She does not smoke. She does not drink. She lives alone. Surrogate decision maker is her daughter, Ghada. REVIEW OF SYSTEMS: There is no documented fever. She is denying any significant weight change. There is no double vision. She denies having any ear discharge. There is no rhinorrhea. She denies having any sore throat. There is no thyroid enlargement. She denies having any chest pain. There is no orthopnea. There is no nocturnal dyspnea. She denies having any abdominal pain. There was nausea, vomiting from my HPI. No dysuria, no frequency. There is no seizure, there is no loss of consciousness. No pruritus and no skin ulcerations. Review of 14 systems completed, all others negative. PHYSICAL EXAMINATION GENERAL: At this time, Ms. Pavon is a 72-year-old female patient. She is sitting in the ED stretcher. She does not appear to be in any acute distress. She is awake, alert. She appears well nourished, well developed. VITAL SIGNS: Blood pressure 155/76, pulse 58, respirations 14, O2 sat 99% on room air, temperature 97.8. Her blood pressure when she came into the ED was 170 and it did get as high as 180s systolically. HEENT: Head: Atraumatic, normocephalic. Eyes: EOMs are intact. Sclerae are anicteric and not pale. Throat: Oral mucosa appears to be moist. No oropharyngeal erythema. NECK: Supple. LUNGS: Clear to auscultation bilaterally. No wheezes, rales, or rhonchi. HEART: Sounds S1, S2. She is bradycardic. She does have a grade 2 to 3 murmur in the aortic listening area, which she has known about. ABDOMEN: Soft, flat, nontender. Bowel sounds are present. EXTREMITIES: Pulses were 2+ throughout. She is moving all 4 extremities with 5 /5 strength. The right wrist, there is no erythema now noted. She has good strong veneer jointer. Distal CSM checks were intact. She has full range of motion to the right wrist, that is where the cat bite was. NEUROLOGIC: She is awake, she is alert. She has no neck stiffness. Her neck was supple. EOMs are intact. Pupils reactive to light. Cranial nerves II through XII were intact. Speech was clear. Tongue midline. No gross focal deficits. SKIN: Intact. DIAGNOSTIC STUDIES/LAB DATA: WBC of 5.8, RBC of 3.50, her hemoglobin was 10.7 which is right near her baseline, hematocrit was 30, platelet count of . The INR was 0.91, PTT of 31.7. The sodium was 114, repeat sodium 4 hours later was 114; potassium 4.2; chloride of 81; bicarb 25; BUN 9; creatinine 0.75; glucose of 138; lactate 0.5; calcium 9. Total bili 0.4, AST 12, ALT 10, alk phos 66. Troponin 0.00. Albumin of 4.1. Urine showed a low specific gravity, trace ketones. She did have chest x-ray obtained today. Impression: No active cardiopulmonary disease. Brain CT obtained today showed no acute intracranial findings. EKG today does show a sinus bradycardia, rate of 50, but there is no ST elevation or T-wave inversion. It does appear to be first-degree AV block. Reviewing previous EKGs, heart rate was 54 when she was here previously and last EKG from 6 years ago showed normal sinus rhythm, rate of 66. Old medical records reviewed. ASSESSMENT AND PLAN: Ms. Pavon is a 72-year-old female patient coming into the ED today with complaints of headache, nausea, vomiting, and on evaluation was found to be hypertensive and hyponatremic. We were asked to evaluate for admission. She will be admitted under inpatient status for: 1. Hyponatremia. Again, this is probably multifactorial. She was on 2 SSRIs. I do not want to stop them both completely. I do think we should stop the Celexa, continue the Zoloft and may consider reducing the dose. She also drank 9 bottles of water yesterday, which certainly may be contributing, may be a component of syndrome of inappropriate secretion of antidiuretic hormone. I would like to get the urine sodium, serum osmol and urine osmol, TSH, and cortisol levels in the patient. I have ordered normal saline at 100 an hour to see if we can get this to rise slowly. I have also fluid restricted her and we will get a PICC line in case we need to use 3% and I will place her in the ICU to follow her closely. She is not having any symptoms currently. We will continue to monitor. 2. Elevated blood pressure. Again at this point, I will continue her medication. She has got 1 dose of hydralazine, she got her p.o. meds, she had not taken them yet that could be explaining why the blood pressure was high. We will monitor. If it persistently remains elevated, certainly we will maximize her medication or add another agent. 3. Headache. Again, I am concerned that she may have recurrence of her migraine. I would like to get the records from [facility] to see what medication they have tried for the patient to help her. If her blood pressure remains persistently elevated, we need to avoid triptans. The headache may be exacerbated by the fact that she is hyponatremic. She is under a lot of stress. In addition, has had recent infection. I would like to get the hyponatremia better to see if that helps her. I have ordered p.r.n. tramadol and Tylenol. CT brain was negative. Should the headache persist, I certainly would consider formal evaluation by Neurology. I do not suspect meningitis. She does not have white blood cell count. She does not have a fever. There is no neck stiffness and this has been going on for 2 weeks and she does not have any meningeal signs and the headache kind of waxes and wanes and comes and goes. So, I will continue to monitor this and again continue with supportive care and trying to treat underlying metabolic abnormalities. 4. Bradycardia. This is probably secondary to the atenolol. We will stop that completely for now, but we will need to reevaluate. If the heart rate comes up, I would consider restarting this at a low dose, 12.5, and we will continue to monitor. 5. Diabetes. Lispro sliding scan has been ordered. 6. Hypertension. Continue her meds, if we needed to I will maximize her therapy or add on agents if it remains an issue. My goal is to try to keep her on 150 to 140 systolic. 7. Anxiety and depression. Continue meds as prescribed. Again, I am going to stop the Celexa as she is on 2 SSRIs, I think one should suffice. 8. History of focal tremors. Continue with her meds as prescribed. 9. Overactive bladder. Continue Ditropan. 10. DVT prophylaxis. Ordered heparin subcu. 11. Code status. Full code. 12. Fluids, electrolytes, and nutrition. She can have a regular diet with fluid restriction. TIME SPENT: On the admission was 60 minutes, greater than half of the time was spent [id number] with the patient, obtaining history and physical, the other half of the time was spent going over the plan of care with the patient and implementing the plan of care. I did discuss plan of care with my attending, Dr. Davidson; he is in agreement. CY TATE, JARET [id number]/[facility] #: [id number] [place]
[2018-03-10] MEDS: amLODIPine TAB* 5 MG PO SCH (21:20)
[2018-03-10] MEDS: Oxybutynin TAB* 5 MG PO SCH (21:21)
[2018-03-10] MEDS: ALPRAZolam TAB* 0.5 MG PO PRN (21:22)
[2018-03-10] MEDS: Acetaminophen TAB* 325 MG PO PRN (21:22)
[2018-03-10 22:23] LABS: EGFR Non-African American 78.4 (>60)
[2018-03-11 04:38] LABS: ABS Basophils 0 10^3/ul (0-0.2); ABS Eosinophils 0.1 10^3/ul (0-0.6); ABS Lymphocytes 2.4 10^3/ul (1.0-4.8); ABS Monocytes 0.6 10^3/ul (0-0.8); ABS Nucleated RBC 0 10^3/ul; Eosinophil % 1.6 % (0-6); Hematocrit 27 % (35-47); Hemoglobin 9.3 g/dl (12.0-16.0); Lymphocyte % 39.2 % (25-47); Mean Corpuscular HGB Conc 35 g/dl (31-36); Mean Corpuscular Hemoglobin 30 pg (27-31); Mean Corpuscular Volume 86 fL (80-97); Mean Platelet Volume 7.8 um3 (7.4-10.4); Nucleated Red Blood Cells % 0; Platelet Count 284 10^3/ul (150-450); Red Cell Distribution Width 13 % (10.5-15); White Blood Count 6.2 10^3/ul (3.5-10.8)
[2018-03-11 04:53] LABS: EGFR Non-African American 80.9 (>60)
[2018-03-11] MEDS: Clindamycin CAP* 150 MG PO SCH ×3 (05:50→22:59)
[2018-03-11] MEDS: Heparin VIAL(*) 5000 UNITS/ML VIAL (FIVE THOUSAND) SUBCUT SCH ×3 (05:51→23:00)
[2018-03-11] MEDS: Acetaminophen TAB* 325 MG PO PRN (05:55)
[2018-03-11] MEDS: Insulin LISPRO* 1 UNITS UNIT SUBCUT SCH ×3 (07:46→17:43)
[2018-03-11] MEDS: ALPRAZolam TAB* 0.5 MG PO SCH (08:07)
[2018-03-11] MEDS: Aspirin EC TAB* 81 MG TAB.EC PO SCH (08:07)
[2018-03-11] MEDS: Sertraline* 100 MG TAB PO SCH (08:07)
[2018-03-11] MEDS: Oxybutynin TAB* 5 MG PO SCH ×2 (08:07→20:06)
[2018-03-11] MEDS: Primidone TAB(*) 50 MG PO SCH ×2 (08:07→20:05)
[2018-03-11] MEDS: Lisinopril TAB* 10 MG PO SCH (08:07)
--- NOTE | 2018-03-11 13:38 | PN ---
Subjective Date of Service: 03/11/18 Interval History: Patient seen and examined at bedside. Denies fever, chills, shortness of breath , chest discomfort, N/V/D. Pt states that her headache is improving, "down to a dull roar". She feels much better today, then she did when she was admitted. Tele: Sinus rhythm, rate 60-70's. Pt noted to have PVCs early this morning. Family History: Unchanged from Admission Social History: Unchanged from Admission Past Medical History: Unchanged from Admission Objective Active Medications: Acetaminophen (Tylenol Tab*) 650 mg PO Q6H PRN Reason: FEVER/PAIN Alprazolam (Xanax Tab*) 0.5 mg PO QAM JATINDER Alprazolam (Xanax Tab*) 1 mg PO BEDTIME PRN Reason: ANXIETY Amlodipine Besylate (Norvasc Tab*) 10 mg PO BEDTIME JATINDER Aspirin (Aspirin Ec Tab*) 81 mg PO DAILY JATINDER Clindamycin HCl (Cleocin Cap*) 300 mg PO Q8HR JATINDER Stop: 03/11/18 23:59 Dextrose (D50w Syringe 50 Ml*) 12.5 gm IV PUSH .FOR FS < 60 - SS PRN Reason: FS < 60 Heparin Sodium (Porcine) (Heparin Vial(*)) 5,000 units SUBCUT Q8HR JATINDER Heparin Sodium (Porcine) (Heparin Flush Picc/Ml/Cvc(*)) 1 - 3 ml FLUSH 0600, 1800 JATINDER; Protocol Insulin Human Lispro (Humalog*) 0 units SUBCUT AC JATINDER; Protocol Lisinopril (Prinivil Tab*) 40 mg PO DAILY [facility] Oxybutynin Chloride (Ditropan Tab*) 5 mg PO BID [facility] Primidone (Mysoline Tab(*)) 100 mg PO BID JATINDER Sertraline HCl (Zoloft*) 100 mg PO QAM JATINDER Tramadol HCl (Ultram*) 50 mg PO Q6H PRN Reason: PAIN Vital Signs - 8 hr 03/11/18 03/11/18 03/11/18 07:57 08:00 08:07 Temperature 97.2 F Pulse Rate 58 Respiratory 12 14 20 Rate Blood Pressure 148/56 (mmHg) O2 Sat by Pulse 100 100 Oximetry 03/11/18 12:39 Temperature Pulse Rate Respiratory 18 Rate Blood Pressure (mmHg) O2 Sat by Pulse Oximetry Oxygen Devices in Use Now: None Appearance: NAD, sitting up in bed Ears/Nose/Mouth/Throat: Mucous Membranes Moist Respiratory: Symmetrical Chest Expansion and Respiratory Effort, Clear to Auscultation Cardiovascular: RRR, - - Grade 2/6 systolic murmur heard best at the left upper sternal border Abdominal: NL Sounds; No Tenderness; No Distention Extremities: No Edema Skin: No Rash or Ulcers Neurological: Alert and Oriented x 3, NL Muscle Strength and Tone Lines/Tubes/Other Access: Clean, Dry and Intact Peripheral IV - site benign Nutrition: Taking PO's Result Diagrams: 03/11/18 04:30 03/11/18 04:30 Microbiology and Other Data: Microbiology 03/10/18 08:54 Aerobic Blood Culture - Preliminary Blood Venous No Growth Day 1 Anaerobic Blood Culture - Preliminary No Growth Day 1 03/10/18 12:20 Nasal Screen MRSA (PCR) - Final Nasal Mrsa Not Detected Assess/Plan/Problems-Billing Assessment: Ms. Pavon is a 72 yo female with PMH significant for DM, HTN, HLD, OAB, focal tremors, anxiety and depression who presented to the emergency room with complaints of headache, nausea and vomiting and was found to have hyponatremia and hypertensive. - Patient Problems (1) Hyponatremia Code(s): E87.1 - HYPO-OSMOLALITY AND HYPONATREMIA SNOMED Code(s): 34800028 Comment: -Euvolemic -Suspect multifactorial due to SIADH due to possible stress, 2 SSRIs, and excessive water intake -Continue watchful waiting and 1200 ml fluid restriction (2) Headache Code(s): R51 - HEADACHE SNOMED Code(s): 36412112 Comment: - Improving - Brain CT negative - Continue supportive care, PRN pain medications (3) Bradycardia Code(s): R00.1 - BRADYCARDIA, UNSPECIFIED SNOMED Code(s): 65378072 Comment: - Suspect secondary to atenolol - Continue to hold atenolol, will consider resumeing at a lower dose if HR improves (4) Hypertension Code(s): I10 - ESSENTIAL (PRIMARY) HYPERTENSION SNOMED Code(s): 40695846 Comment: - Mostly normotensive, SBP 110-140's - Continue Amlodipine, atenolol, and Lisinopril (5) Diabetes Code(s): E11.9 - TYPE 2 DIABETES MELLITUS WITHOUT COMPLICATIONS SNOMED Code(s) : 47963922 Comment: - Glucose 110-150's - HgA1C 6.3, 02/2018 - Continue Lispro SS (6) Anxiety and depression Code(s): F41.9 - ANXIETY DISORDER, UNSPECIFIED; F32.9 - MAJOR DEPRESSIVE DISORDER, SINGLE EPISODE, UNSPECIFIED SNOMED Code(s): 25664969 Comment: - Discontinue Celexa - Continue Zoloft (7) Tremor Code(s): R25.1 - TREMOR, UNSPECIFIED SNOMED Code(s): 06282825 Comment: - Focal tremors - Continue Primidone (8) Overactive bladder Code(s): N32.81 - OVERACTIVE BLADDER SNOMED Code(s): 649440697 Comment: - Continue Ditropan (9) DVT prophylaxis Code(s): JTN8488 - SNOMED Code(s): 547047884 Comment: - SQ Heparin (10) Full code status Code(s): Z78.9 - OTHER SPECIFIED HEALTH STATUS SNOMED Code(s): 452431981 Status and Disposition: Inpatient. Discharge to home when medically stable, possibly in the AM.
[2018-03-11] MEDS: amLODIPine TAB* 5 MG PO SCH (20:06)
[2018-03-11] MEDS: ALPRAZolam TAB* 0.5 MG PO PRN (20:15)
[2018-03-12] MEDS: Heparin VIAL(*) 5000 UNITS/ML VIAL (FIVE THOUSAND) SUBCUT SCH ×2 (07:02→14:14)
[2018-03-12 07:44] LABS: EGFR Non-African American 80.9 (>60)
[2018-03-12] MEDS: Insulin LISPRO* 1 UNITS UNIT SUBCUT SCH ×3 (07:49→18:44)
[2018-03-12] MEDS: Sertraline* 100 MG TAB PO SCH (07:50)
[2018-03-12] MEDS: Oxybutynin TAB* 5 MG PO SCH (07:50)
[2018-03-12] MEDS: Aspirin EC TAB* 81 MG TAB.EC PO SCH (07:51)
[2018-03-12] MEDS: Primidone TAB(*) 50 MG PO SCH (07:51)
[2018-03-12] MEDS: Lisinopril TAB* 10 MG PO SCH (07:51)
[2018-03-12] MEDS: ALPRAZolam TAB* 0.5 MG PO SCH (07:52)
--- NOTE | 2018-03-12 11:48 | PN ---
Subjective Date of Service: 03/12/18 Interval History: Patient seen and examined at bedside. Denies fever, chills, headache, shortness of breath, chest discomfort, N/V/D. Pt is anxious about going home she feels that she isn't ready today and needs one more day. She has family helping to clean up her house today and installing an air conditioner. Tele: Sinus rhythm, rate 70's. Family History: Unchanged from Admission Social History: Unchanged from Admission Past Medical History: Unchanged from Admission Objective Active Medications: Acetaminophen (Tylenol Tab*) 650 mg PO Q6H PRN Reason: FEVER/PAIN Alprazolam (Xanax Tab*) 0.5 mg PO QAM JATINDER Alprazolam (Xanax Tab*) 1 mg PO BEDTIME PRN Reason: ANXIETY Amlodipine Besylate (Norvasc Tab*) 10 mg PO BEDTIME JATINDER Aspirin (Aspirin Ec Tab*) 81 mg PO DAILY [facility] Dextrose (D50w Syringe 50 Ml*) 12.5 gm IV PUSH .FOR FS < 60 - SS PRN Reason: FS < 60 Heparin Sodium (Porcine) (Heparin Vial(*)) 5,000 units SUBCUT Q8HR [facility] Heparin Sodium (Porcine) (Heparin Flush Picc/Ml/Cvc(*)) 1 - 3 ml FLUSH 0600, 1800 JATINDER; Protocol Insulin Human Lispro (Humalog*) 0 units SUBCUT AC JATINDER; Protocol Lisinopril (Prinivil Tab*) 40 mg PO DAILY [facility] Oxybutynin Chloride (Ditropan Tab*) 5 mg PO BID [facility] Primidone (Mysoline Tab(*)) 100 mg PO BID [facility] Sertraline HCl (Zoloft*) 100 mg PO QAM JATINDER Tramadol HCl (Ultram*) 50 mg PO Q6H PRN Reason: PAIN Vital Signs - 8 hr 03/12/18 03/12/18 03/12/18 07:18 07:52 08:00 Temperature 97.8 F Pulse Rate 68 Respiratory 16 16 16 Rate Blood Pressure 146/59 (mmHg) O2 Sat by Pulse 100 Oximetry 03/12/18 03/12/18 11:14 11:22 Temperature 98.0 F Pulse Rate 72 Respiratory 16 16 Rate Blood Pressure 134/64 (mmHg) O2 Sat by Pulse 100 Oximetry Oxygen Devices in Use Now: None Appearance: NAD, sitting up in a chair Ears/Nose/Mouth/Throat: Mucous Membranes Moist Respiratory: Symmetrical Chest Expansion and Respiratory Effort, Clear to Auscultation Cardiovascular: NL Sounds; No Murmurs; No JVD, RRR Abdominal: NL Sounds; No Tenderness; No Distention Extremities: No Edema Skin: No Rash or Ulcers Neurological: Alert and Oriented x 3, NL Muscle Strength and Tone Lines/Tubes/Other Access: Clean, Dry and Intact Peripheral IV - site benign Nutrition: Taking PO's Result Diagrams: 03/11/18 04:30 03/12/18 07:00 Microbiology and Other Data: Microbiology 03/10/18 08:54 Aerobic Blood Culture - Preliminary Blood Venous No Growth Day 1 Anaerobic Blood Culture - Preliminary No Growth Day 1 03/10/18 12:20 Nasal Screen MRSA (PCR) - Final Nasal Mrsa Not Detected Assess/Plan/Problems-Billing Assessment: Ms. Pavon is a 72 yo female with PMH significant for DM, HTN, HLD, OAB, focal tremors, anxiety and depression who presented to the emergency room with complaints of headache, nausea and vomiting and was found to have hyponatremia and hypertensive. 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 due to possible stress, 2 SSRIs, and excessive water intake - Continue 1500 ml fluid restriction (2) Headache Code(s): R51 - HEADACHE SNOMED Code(s): 45671362 Comment: - Resolved - Brain CT negative - Continue supportive care, PRN pain medications (3) Bradycardia Code(s): R00.1 - BRADYCARDIA, UNSPECIFIED SNOMED Code(s): 15685612 Comment: - Resolved - Suspect secondary to atenolol - Resume atenolol (decreased dose) (4) Hypertension Code(s): I10 - ESSENTIAL (PRIMARY) HYPERTENSION SNOMED Code(s): 87806794 Comment: - Mostly normotensive, SBP 120-160's - Continue Amlodipine, atenolol (decreased dose), and Lisinopril (5) Diabetes Code(s): E11.9 - TYPE 2 DIABETES MELLITUS WITHOUT COMPLICATIONS SNOMED Code(s) : 85400404 Comment: - Glucose 90-150's - HgA1C 6.3, 02/2018 - Continue Lispro SS - Resume metformin at discharge (6) Anxiety and depression Code(s): F41.9 - ANXIETY DISORDER, UNSPECIFIED; F32.9 - MAJOR DEPRESSIVE DISORDER, SINGLE EPISODE, UNSPECIFIED SNOMED Code(s): 88016773 Comment: - Discontinue Celexa - Continue Zoloft (7) Tremor Code(s): R25.1 - TREMOR, UNSPECIFIED SNOMED Code(s): 70096125 Comment: - Focal tremors - Continue Primidone (8) Overactive bladder Code(s): N32.81 - OVERACTIVE BLADDER SNOMED Code(s): 725772640 Comment: - Continue Ditropan (9) DVT prophylaxis Code(s): CCD8673 - SNOMED Code(s): 643969387 Comment: - SQ Heparin (10) Full code status Code(s): Z78.9 - OTHER SPECIFIED HEALTH STATUS SNOMED Code(s): 858234121 Status and Disposition: Inpatient. Discharge to home when medically stable, possibly later today or in the AM.
[2018-03-12] MEDS ORDERED: Atenolol TAB* 25 MG PO SCH (12:00)
[2018-03-12 16:58] VITALS: BP 151/59
--- NOTE | 2018-03-12 18:55 | DS ---
CC: Dr. Antonio Jane * DISCHARGE SUMMARY: DATE OF ADMISSION: 03/10/18 DATE OF DISCHARGE: 03/12/18 ATTENDING PHYSICIAN: Dr. Charisse Ruiz * (dictated by Luma Johnson NP) PRIMARY CARE PROVIDER: Antonio Jane MD PRIMARY DIAGNOSES: 1. 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 2. Headache, resolved. 3. Bradycardia, resolved. SECONDARY DIAGNOSIS: 1. Hypertension. 2. Diabetes mellitus. 3. Anxiety/depression. 4. Tremor. 5. Overactive bladder. STUDIES WHILE IN THE HOSPITAL: 1. Chest x-ray on 03/10/18. Radiologist's impression: No active cardiopulmonary disease. 2. Brain CT on 03/10/18. Radiologist's impression: No acute intracranial findings. DISCHARGE MEDICATIONS: Continued home medications. 1. Metformin 1000 mg oral twice daily. 2. Oxybutynin 5 mg oral twice daily. 3. Primidone 100 mg oral twice daily. 4. Sertraline 100 mg oral daily. 5. Xanax 1 mg oral daily at bedtime as needed. 6. Daily multivitamin 1 tablet oral daily. 7. Aspirin 81 mg oral daily. 8. Calcium 500 plus vitamin D capsule 1 tablet oral twice daily. 9. Vitamin C 500 mg oral twice daily. 10. Xanax 0.5 mg oral daily every morning. 11. Amlodipine 10 mg oral daily. 12. Acetaminophen 650 mg oral every 6 hours as needed for fever or pain. 13. Lactobacillus 1 chewable oral daily. 14. Tramadol 50 mg oral every 6 hours as needed for pain. 15. Lisinopril 40 mg oral daily. Changed home medications: 1. Atenolol decreased to 12.5 mg oral daily. Discontinued home medication: 1. Clindamycin. 2. Celexa. HISTORY OF PRESENT ILLNESS/HOSPITAL COURSE: Ms. Pavon is a 72-year-old female with past medical history significant for diabetes mellitus, hypertension, hyperlipidemia, anxiety, former history of migraines, depression, focal tremor, and overactive bladder, who presented to the emergency room with complaints of not feeling well including nausea, headache. The patient has been having headaches intermittently for couple weeks. The patient has recently been under a lot of stress due to her 's and needing to get rid of her cats. The patient states that she has no air conditioning in her home and weather being hot out, she has been drinking increased amounts of water to try to stay hydrated. It is to note that the patient was previously hospitalized from to 03/05/18 for cellulitis of her right hand, status post cat bite and scratch, hyponatremia, hypertension, and anxiety. Due to her symptoms, she presented to the emergency room. While in the emergency room, the patient had routine labs showing hyponatremia with a sodium of 114, hypertension with systolic blood pressures in the 180s. She had a chest x-ray without acute findings, a brain CT without acute findings and the hospitalist were asked to evaluate the patient for admission. While in the hospital, it was initially felt that the patient may need to have 3 % saline. She was given saline. Her sodium was rechecked and was trending up. She was doing well, was transferred out of the ICU and monitored on the telemetry floor. The patient continued to have a headache that eventually resolved. During her stay, her sodium continued to improve when she was placed on a fluid restriction. It was felt that her hyponatremia was multifactorial including SIADH secondary to anxiety in addition to excessive fluid intake and the fact that she was on 2 SSRIs. Her Celexa was discontinued. The patient was also noted to be bradycardiac. Her atenolol was initially held. When her heart rate returned to the 70s, she was resumed on the decreased of atenolol. Her hypertension improved. Her glucoses were well controlled. Ms. Pavon is stable for discharge home today. Vital signs are as follows: Temperature 98.0, heart rate 72, respiratory rate 16, O2 sat 100% on room air, blood pressure 134/64. DISCHARGE PLAN: Ms. Pavon will be discharged to home. Activity as tolerated. She should be on a consistent carbohydrate diet. In regards to her hyponatremia , I recommend her continuing to be on a 1500 mL fluid restriction and continue to follow her sodium. I recommend discontinuing her Celexa. For her anxiety and depression, she should be continued on her Xanax and Zoloft. For the patient's headaches, she should be continued on as needed tramadol. The patient states she already has a followup appointment set up with her primary care provider's office this week on 03/15/18 with Kristin Ocasio NP. She has been encouraged to keep this appointment. The patient's atenolol has been decreased to 12.5 mg (half a tablet) due to her bradycardia. She should return to the emergency room for any chest pain, shortness of breath. Points of discussion at followup: Please get a followup BMP on the patient at her followup. Additionally, continue to encourage her, as she is working very hard to keep her glucose under control. This is a summarized report of a complex medical history and hospital stay. For further details, please see the entire medical record. TIME SPENT: Time for this discharge was approximately 50 minutes, greater than half of that was spent with the patient discussing discharge plans and instructions. CONDITION ON DISCHARGE: Stable. Reviewed by TORIBIO PENG 03/14/18 1828 [id number]/[facility] #: [id number] [place]
--- NOTE | 2018-03-15 06:34 | ED ---
Shiraz Rosado Tariq, scribed for Arturo Mendez MD on 03/10/18 at 0855 . Complex/Multi-Sys Presentation - HPI Summary HPI Summary: A 72 y/o female CAREN presents to ED c/o nausea, vomiting and severe headache. As per triage, "Pt D/C from hospital on 03/05/2018. Pt was sent home on Clindamycin, oral Anti-emetic and Tramadol. Did not refill Rx for anti-emetic. Vomited 2 days ago. Persistent nausea and headache". According to pt, she just left on Wednesday (5 days ago) and things have not been going well since. She states that she suffers from severe headache (8/10) and heavy-duty nausea. Currently. she feels the need to vomit however, "there is nothing there". She exhibited severe emesis at , however she was fine when she left the hospital. On Wednesday, Sx of emesis and headache persisted. Pt was able to alleviate Sx with kashif estuardo and crackers. However, at approximately 0630, pt's friend came over and noticed pt had nausea and noticed her head was sweaty. Pt attempted to alleviate Sx with yogurt, however it did no good. Pt denies diarrhea, CP or SOB , however she stated she feels lightheaded and dizzy. Abdominal pain is present due to nausea, "not belly per say". Additionally, bite and scatch from a cat is on right hand. According to pt, her BP is usually around 120/70. - History Of Current Complaint Chief Complaint: EDNauseaVomitDiarrh Time Seen by Provider: 03/10/18 08:24 Hx Obtained From: Patient Onset/Duration: Sudden Onset, Lasting Days, Still Present, Worse Since - 5 days ago Timing: Constant Severity Initially: Severe - 8/10 Aggravating Factor(s): NOTHING Alleviating Factor(s): KASHIF ESTUARDO AND CRACKERS TEMPORARILY Associated Signs And Symptoms: Positive: Dizziness, Headache, Vomiting, Abdominal Pain - DUE TO NAUSEA, Diaphoresis - HEAD, Other - DIZZINESS. Negative : SOB, Chest Pain, Diarrhea - Allergies/Home Medications Allergies/Adverse Reactions: Allergies Allergy/AdvReac Type Severity Reaction Status Date / Time Penicillins Allergy Unknown Verified 03/03/18 19:47 Reaction Details PMH/Surg Hx/FS Hx/Imm Hx Endocrine/Hematology History: Reports: Hx Diabetes Cardiovascular History: Reports: Hx Hypertension Respiratory History: Reports: Hx Chronic Bronchitis Musculoskeletal History: Reports: Hx Arthritis Sensory History: Reports: Hx Contacts or Glasses Denies: Hx Hearing Aid Opthamlomology History: Reports: Hx Contacts or Glasses Neurological History: Reports: Hx Headaches Psychiatric History: Reports: Hx Anxiety, Hx Depression - Surgical History Surgery Procedure, Year, and Place: knee surgery 2011 Infectious Disease History: No Infectious Disease History: Denies: Traveled Outside the [place] in Last 30 Days - Family History Known Family History: Positive: Hypertension, Diabetes - Social History Alcohol Use: None Hx Substance Use: No Substance Use Type: Reports: None Hx Tobacco Use: No Smoking Status (MU): Never Smoked Tobacco Review of Systems Negative: Fever, Chills Negative: Erythema Negative: Sore Throat Negative: Chest Pain Negative: Shortness Of Breath, Cough Positive: Abdominal Pain - DUE TO NAUSEA, Vomiting, Nausea. Negative: Diarrhea Negative: dysuria, hematuria Negative: Myalgia, Edema Negative: Rash Neurological: Other - POSITIVE: Dizziness, lightheadedness Positive: Headache - Severe, 8/10 All Other Systems Reviewed And Are Negative: Yes Physical Exam - Summary Physical Exam Summary: Constitutional: Well-developed, Well-nourished, Alert. (-) Distressed Skin: Warm, Dry. Hand bite is no longer swollen or erythematous. HENT: Normocephalic; Atraumatic Eyes: Conjunctiva normal Neck: Musculoskeletal ROM normal neck. (-) JVD, (-) Stridor, (-) Tracheal deviation Cardio: Rhythm regular, rate normal, Heart sounds normal; Intact distal pulses; The pedal pulses are 2+ and symmetric. Radial pulses are 2+ and symmetric. (-) Murmur Pulmonary/Chest wall: Effort normal. (-) Respiratory distress, (-) Wheezes, (-) Rales Abd: Soft, (-), epigastric tenderness, (-) Distension, (-) Guarding, (-) Rebound Musculoskeletal: (-) Edema Lymph: (-) Cervical adenopathy Neuro: Alert, Oriented x3 Psych: Mood and affect Normal GCS: 15 Triage Information Reviewed: Yes Vital Signs On Initial Exam: Initial Vitals Temp Pulse Resp BP Pulse Ox 96.8 F 54 16 173/74 98 03/10/18 08:00 07/05/18 08:00 03/10/18 08:00 03/10/18 08:00 03/10/18 08:00 Vital Signs Reviewed: Yes Diagnostics - Vital Signs Vital Signs Temp Pulse Resp BP Pulse Ox 03/10/18 08:00 96.8 F 54 16 173/74 98 - Laboratory Result Diagrams: 03/10/18 08:54 03/10/18 11:09 Lab Statement: Any lab studies that have been ordered have been reviewed, and results considered in the medical decision making process. - Radiology CXR Radiology Interpretation Completed By: Radiologist - NO ACTIVE CARDIOPULMONARY DISEASE. ED PHYSICIAN REVIEWED THIS RADIOLOGY REPORT. - CT BRAIN CT CT Interpretation Completed By: Radiologist - No acute intracranial findings. ED PHYSICIAN REVIEWED THIS RADIOLOGY REPORT. - EKG 0850 Cardiac Rate: Bradycardia - 50 BPM EKG Rhythm: Sinus Bradycardia EKG Interpretation: Negative for STEMI Complex Multi-Symp Course/Dx - Diagnoses Provider Diagnoses: Uncontrolled hypertension, Hyponatremia - Physician Notifications Discussed Care Of Patient With: Dionte Davidson - ACCEPTS PT FOR ADMISSION - Critical Care Time Critical Care Time: 30-74 min - 45 MINUTES Discharge - Sign-Out/Discharge Documenting (check all that apply): Discharge/Admit/Transfer - ADMIT - Discharge Plan Condition: Stable Disposition: ADMITTED TO [facility] The documentation as recorded by the Shiraz jacques Tariq accurately reflects the service I personally performed and the decisions made by me, Arturo Mendez MD.
== END 2018-03-12 18:11 | disposition home or self-care (01) | DRG 645 ==
LOC: ED 07:54 → MEDTELE 09:39 → ICU 11:44 → MEDTELE 22:38
PROVIDERS: ADMIT Internal Medicine; ATTEND Internal Medicine
PROC: 02HV33Z Insertion of Infusion Device into Superior Vena Cava, Percutaneous Approach (ICD-10-PCS; principal; 2018-03-10)
DX: E22.2 Syndrome of inappropriate secretion of antidiuretic hormone (principal); E11.9 Type 2 diabetes mellitus without complications; I10 Essential (primary) hypertension; E78.5 Hyperlipidemia, unspecified; F41.9 Anxiety disorder, unspecified; G43.909 Migraine, unspecified, not intractable, without status migrainosus; F32.9 Major depressive disorder, single episode, unspecified; R00.1 Bradycardia, unspecified; N32.81 Overactive bladder; Z88.0 Allergy status to penicillin; Z83.3 Family history of diabetes mellitus; Z82.49 Family history of ischemic heart disease and other diseases of the circulatory system; Z79.82 Long term (current) use of aspirin; Z79.84 Long term (current) use of oral hypoglycemic drugs; T43.225A Adverse effect of selective serotonin reuptake inhibitors, initial encounter; Y92.9 Unspecified place or not applicable; G25.2 Other specified forms of tremor
CPT/HCPCS: 36415; 70450; 71045; 80048; 80053; 81003; 82533; 83605; 83735; 83930; 83935; 84300; 84443; 84484; 85025; 85610; 85730; 87040; 87086; 87641; 93005; 99284; A9270-GY; C1751; J0360; J1200; J1644; J2765

== ENCOUNTER 2021-11-09 13:50 | Inpatient (IN) ==
[2021-11-09] MEDS ORDERED: Morphine 2 MG/ML SYRINGE IV ONE (16:23)
[2021-11-09 16:37] LABS: ABS Eosinophils 0.1 10^3/ul (0-0.6); ABS Lymphocytes 1.4 10^3/ul (1.0-4.8); ABS Monocytes 0.4 10^3/ul (0-0.8); ABS Neutrophils 10.8 10^3/ul (1.5-7.7); Eosinophil % 0.4 %; Hematocrit 33 % (35-47); Hemoglobin 11.2 g/dL (12.0-16.0); Lymphocyte % 10.8 %; Mean Corpuscular HGB Conc 34 g/dL (31-36); Mean Corpuscular Hemoglobin 31 pg (27-31); Mean Corpuscular Volume 93 fL (80-97); Mean Platelet Volume 8.5 fL (7.4-10.4); Platelet Count 324 10^3/uL (150-450); Red Cell Distribution Width 13 % (10-15); White Blood Count 12.6 10^3/uL (3.5-10.8)
[2021-11-09 16:45] LABS: Activated Partial Thrombo Time 28.6 seconds (26.0-38.0); INR 0.95 (0.86-1.15)
[2021-11-09 17:18] LABS: Albumin 4.7 g/dL (3.2-5.2); Albumin/Globulin Ratio 1.9 (1-3); Calcium 10.1 mg/dL (8.6-10.3); Globulin 2.5 g/dL (2-4); Total Bilirubin 0.3 mg/dL (0.2-1.0); Total Protein 7.2 g/dL (6.4-8.9)
[2021-11-09 17:19] LABS: Potassium 5.4 mmol/L (3.5-5.0)
[2021-11-09] MEDS ORDERED: Morphine 4 MG/ML VIAL (1 ml) IV ONE (17:48)
[2021-11-09] MEDS ORDERED: Enoxaparin 40 MG/0.4 ML SYR SUBCUT SCH (18:00)
[2021-11-09] MEDS ORDERED: Naloxone 0.4 mg VIAL 0.4 mg/ml 1 ml VIAL IV PUSH PRN (19:36)
[2021-11-09] MEDS ORDERED: Magnesium Hydroxide LIQ 30 ML UDC PO PRN (19:38)
[2021-11-09] MEDS ORDERED: Senna TAB 8.6 mg TAB PO PRN (19:38)
[2021-11-09] MEDS ORDERED: NS 0.9% 1000 ml BAG 1,000 ML IV SCH (20:30)
[2021-11-10 05:56] LABS: Osmolality Serum 272 mOsm/kg (275-295)
[2021-11-10 06:01] LABS: Hematocrit 31 % (35-47); Hemoglobin 10.5 g/dL (12.0-16.0); Mean Corpuscular HGB Conc 34 g/dL (31-36); Mean Corpuscular Hemoglobin 32 pg (27-31); Mean Corpuscular Volume 93 fL (80-97); Mean Platelet Volume 8.6 fL (7.4-10.4); Platelet Count 277 10^3/uL (150-450); Red Blood Count 3.31 10^6 /uL (3.70-4.87); Red Cell Distribution Width 13 % (10-15); White Blood Count 9.9 10^3/uL (3.5-10.8)
[2021-11-10 06:30] LABS: Calcium 8.9 mg/dL (8.6-10.3); Magnesium 1.6 mg/dL (1.9-2.7); Potassium 4.8 mmol/L (3.5-5.0); eGFR CKD-EPI 91.9 (>60)
[2021-11-10] MEDS ORDERED: Magnesium Sulf 4 GM/100 ML IV 4,000 MG/100 ML BAG IVPB ONE (06:38)
[2021-11-10] MEDS ORDERED: NS 0.9% 1000 ml BAG 1,000 ML IV ONE (08:33)
[2021-11-10] MEDS ORDERED: Heparin 5000 UNITS/ML 1 mL VIAL SUBCUT SCH (16:00)
[2021-11-10] MEDS: Heparin 5000 UNITS/ML 1 mL VIAL SUBCUT SCH ×2 (16:14→22:33)
[2021-11-10 16:20] LABS: ABS Eosinophils 0.1 10^3/ul (0-0.6); ABS Monocytes 0.6 10^3/ul (0-0.8); ABS Neutrophils 6.4 10^3/ul (1.5-7.7); Eosinophil % 1.2 %; Hematocrit 28 % (35-47); Hemoglobin 9.6 g/dL (12.0-16.0); Lymphocyte % 21.7 %; Mean Corpuscular HGB Conc 34 g/dL (31-36); Mean Corpuscular Hemoglobin 31 pg (27-31); Mean Corpuscular Volume 91 fL (80-97); Mean Platelet Volume 7.8 fL (7.4-10.4); Nucleated Red Blood Cells % 0.1; Platelet Count 290 10^3/uL (150-450); Red Blood Count 3.09 10^6 /uL (3.70-4.87); Red Cell Distribution Width 13 % (10-15)
[2021-11-10 16:35] LABS: Activated Partial Thrombo Time 28.3 seconds (26.0-38.0); INR 0.96 (0.86-1.15)
[2021-11-10 17:15] LABS: Calcium 8.5 mg/dL (8.6-10.3); Magnesium 2.2 mg/dL (1.9-2.7); Potassium 4.4 mmol/L (3.5-5.0); eGFR CKD-EPI 92.6 (>60)
[2021-11-10 17:51] LABS: Urine Osmo 577 mOsm/kg (150-1150)
[2021-11-10] MEDS: Calcium/Vitamin D TAB 250/125 TAB PO SCH (22:32)
[2021-11-11 06:32] LABS: Hematocrit 31 % (35-47); Hemoglobin 10.6 g/dL (12.0-16.0); Mean Corpuscular HGB Conc 34 g/dL (31-36); Mean Corpuscular Hemoglobin 32 pg (27-31); Mean Corpuscular Volume 93 fL (80-97); Mean Platelet Volume 8.5 fL (7.4-10.4); Platelet Count 289 10^3/uL (150-450); Red Blood Count 3.35 10^6 /uL (3.70-4.87); Red Cell Distribution Width 13 % (10-15); White Blood Count 9.2 10^3/uL (3.5-10.8)
[2021-11-11 06:50] LABS: Calcium 8.9 mg/dL (8.6-10.3); Magnesium 1.8 mg/dL (1.9-2.7); Potassium 4.3 mmol/L (3.5-5.0); eGFR CKD-EPI 90.5 (>60)
[2021-11-11] MEDS ORDERED: Magnesium Sulfate 2 gm BAG 2 GM/50 ML BAG IVPB ONE (07:15)
[2021-11-11] MEDS: Calcium/Vitamin D TAB 250/125 TAB PO SCH ×2 (08:21→23:43)
[2021-11-11 09:43] LABS: Albumin 3.5 g/dL (3.2-5.2); Albumin/Globulin Ratio 1.5 (1-3); Calcium 8.8 mg/dL (8.6-10.3); Globulin 2.3 g/dL (2-4); Potassium 4.5 mmol/L (3.5-5.0); Total Bilirubin 0.3 mg/dL (0.2-1.0); Total Protein 5.8 g/dL (6.4-8.9); eGFR CKD-EPI 92.6 (>60)
[2021-11-11] MEDS ORDERED: Midazolam 2 mg/2 ml VIAL 1 mg/ml 2 ml VIAL (2 mg) ONE (09:52)
[2021-11-11] MEDS ORDERED: fentaNYL 100 mcg/2 ml 50 MCG/ML VIAL ONE ×2 (09:53→14:58)
[2021-11-11] MEDS ORDERED: Rocuronium 50 mg VIAL 10 mg/ml 5 ml VIAL (50 mg) ONE ×3 (09:54→15:32)
[2021-11-11] MEDS ORDERED: Clindamycin 900 MG/D5W BAG 900 MG/50 ML BAG IVPB ONE (11:34)
[2021-11-11] MEDS ORDERED: Bupivacaine 0.5% SDV PF 30ML VIAL ONE (13:20)
[2021-11-11] MEDS ORDERED: EPHEDrine (Pressors) 50 MG/ML VIAL ONE (15:35)
[2021-11-11] MEDS ORDERED: Ondansetron 4 mg VIAL 2 MG/ML 2 ml VIAL ONE (15:35)
[2021-11-11] MEDS ORDERED: Phenylephrine IV 10 MG/ML 1 ml VIAL ONE (15:35)
[2021-11-11] MEDS ORDERED: Acetaminophen IV 1 GM/100ML 100 ML IV ONE (15:36)
[2021-11-11] MEDS ORDERED: Dexamethasone IV 4 MG/ML VIAL 1 ml VIAL ONE (16:07)
[2021-11-11] MEDS ORDERED: Naloxone 0.4 mg VIAL 0.4 mg/ml 1 ml VIAL IV PRN ×2 (16:17→17:25)
[2021-11-11] MEDS ORDERED: DiMENhydriNATE IV 50 mg/ml 1 ml VIAL IV PUSH PRN (16:17)
[2021-11-11] MEDS ORDERED: fentaNYL 100 mcg/2 ml 50 MCG/ML VIAL IV PRN ×2 (16:17→17:25)
[2021-11-11] MEDS ORDERED: Metoclopramide 5 MG/ML VIAL (10 mg) IV PRN (17:25)
[2021-11-11] MEDS ORDERED: Ondansetron 4 mg VIAL 2 MG/ML 2 ml VIAL IV PRN (17:25)
[2021-11-11] MEDS ORDERED: HYDROcodone/ACETAMIN 5/325 mg TAB PO PRN (17:25)
[2021-11-11 17:26] LABS: TSH Ultra Thyroid Stim Horm 4.01 mcIU/mL (0.34-5.60)
[2021-11-11] MEDS: ceFAZolin 1 GM X 3 DOSES POST-OP Q8H (AddVan) IVPB SCH (23:41)
[2021-11-12] MEDS: ceFAZolin 1 GM X 3 DOSES POST-OP Q8H (AddVan) IVPB SCH ×2 (05:27→14:23)
[2021-11-12 07:43] LABS: Hematocrit 24 % (35-47); Hemoglobin 8.1 g/dL (12.0-16.0); Mean Corpuscular HGB Conc 34 g/dL (31-36); Mean Corpuscular Hemoglobin 32 pg (27-31); Mean Corpuscular Volume 93 fL (80-97); Mean Platelet Volume 8.3 fL (7.4-10.4); Platelet Count 229 10^3/uL (150-450); Red Blood Count 2.56 10^6 /uL (3.70-4.87); Red Cell Distribution Width 13 % (10-15); White Blood Count 8.1 10^3/uL (3.5-10.8)
[2021-11-12 08:20] LABS: Calcium 8.1 mg/dL (8.6-10.3); Magnesium 1.7 mg/dL (1.9-2.7); Potassium 4.5 mmol/L (3.5-5.0); eGFR CKD-EPI 90.2 (>60)
[2021-11-12] MEDS: Calcium/Vitamin D TAB 250/125 TAB PO SCH ×2 (09:16→21:13)
[2021-11-12] MEDS ORDERED: Magnesium Sulfate IV 3 GM in NS 0.9% 100 ml BAG 100 ML IVPB ONE (13:32)
[2021-11-12] MEDS ORDERED: Magnesium Sulfate 2 GM IV (Premix) IVPB ONE (14:00)
[2021-11-12 14:23] LABS: Hematocrit 25 % (35-47); Hemoglobin 8.4 g/dL (12.0-16.0)
[2021-11-12] MEDS ORDERED: Magnesium Sulfate 1 GM IV 1 GM/100 ML BAG IV ONE (15:00)
[2021-11-13 06:08] LABS: ABS Eosinophils 0.1 10^3/ul (0-0.6); ABS Lymphocytes 1.7 10^3/ul (1.0-4.8); ABS Monocytes 0.8 10^3/ul (0-0.8); ABS Neutrophils 5.3 10^3/ul (1.5-7.7); Eosinophil % 1.2 %; Hematocrit 21 % (35-47); Hemoglobin 7.2 g/dL (12.0-16.0); Mean Corpuscular HGB Conc 34 g/dL (31-36); Mean Corpuscular Hemoglobin 31 pg (27-31); Mean Corpuscular Volume 92 fL (80-97); Mean Platelet Volume 8.4 fL (7.4-10.4); Nucleated Red Blood Cells % 0.1; Platelet Count 234 10^3/uL (150-450); Red Blood Count 2.31 10^6 /uL (3.70-4.87); Red Cell Distribution Width 13 % (10-15); White Blood Count 7.9 10^3/uL (3.5-10.8)
[2021-11-13 06:48] LABS: Magnesium 2.1 mg/dL (1.9-2.7); Potassium 4.4 mmol/L (3.5-5.0); eGFR CKD-EPI 82.5 (>60)
[2021-11-13] MEDS: Calcium/Vitamin D TAB 250/125 TAB PO SCH ×2 (08:43→20:05)
[2021-11-13 10:23] LABS: Phosphorus 2.7 mg/dL (2.5-5.0)
[2021-11-13] MEDS ORDERED: Ondansetron 4 mg VIAL 2 MG/ML 2 ml VIAL IV PRN (12:00)
[2021-11-13 20:32] LABS: Urine Appearance Cloudy; Urine Bilirubin Negative (Negative); Urine Blood Negative (Negative); Urine Color Yellow; Urine Glucose Negative (Negative); Urine Ketones Negative (Negative); Urine Nitrite Negative (Negative); Urine Protein Negative (Negative); Urine Specific Gravity 1.019 (1.002-1.030); Urine Urobilinogen Negative (Negative)
[2021-11-13 20:39] LABS: Urine Bacteria Absent (Absent); Urine Red Blood Cell Absent (Absent); Urine Squamous Epithelial Cell Present (Absent); Urine White Blood Cell 3+(>20/hpf) (Absent)
[2021-11-13] MEDS ORDERED: cefTRIAXone 1 gm/50 mL NS BAG 1 GM/50 ML BAG IVPB ONE (22:00)
[2021-11-14 03:06] LABS: Hematocrit 25 % (35-47); Hemoglobin 8.3 g/dL (12.0-16.0)
[2021-11-14 05:49] LABS: Hematocrit 23 % (35-47); Mean Corpuscular HGB Conc 34 g/dL (31-36); Mean Corpuscular Hemoglobin 32 pg (27-31); Mean Corpuscular Volume 92 fL (80-97); Mean Platelet Volume 8.1 fL (7.4-10.4); Platelet Count 240 10^3/uL (150-450); Red Blood Count 2.54 10^6 /uL (3.70-4.87); Red Cell Distribution Width 13 % (10-15); White Blood Count 7.9 10^3/uL (3.5-10.8)
[2021-11-14] MEDS: Enoxaparin 40 MG/0.4 ML SYR SUBCUT SCH (05:55)
[2021-11-14 06:33] LABS: Albumin 2.9 g/dL (3.2-5.2); Albumin/Globulin Ratio 1.3 (1-3); Calcium 8.2 mg/dL (8.6-10.3); Globulin 2.2 g/dL (2-4); Magnesium 1.9 mg/dL (1.9-2.7); Potassium 4.4 mmol/L (3.5-5.0); Total Bilirubin 0.4 mg/dL (0.2-1.0); Total Protein 5.1 g/dL (6.4-8.9); eGFR CKD-EPI 93.3 (>60)
[2021-11-14] MEDS: Magnesium Hydroxide LIQ 30 ML UDC PO SCH ×2 (09:20→21:33)
[2021-11-14] MEDS: Calcium/Vitamin D TAB 250/125 TAB PO SCH ×2 (09:23→21:33)
[2021-11-14] MEDS ORDERED: Furosemide 20 mg/2 ml IV VIAL IV SLOW PU ONE (09:33)
[2021-11-14] MEDS ORDERED: Polyethylene Glycol 3350 17 GM PACKET PO ONE (09:33)
[2021-11-14] MEDS: cefTRIAXone 1 gm/50 mL NS BAG 1 GM/50 ML BAG IVPB SCH (20:46)
[2021-11-14] MEDS ORDERED: Senna TAB 8.6 mg TAB PO SCH (21:00)
[2021-11-14] MEDS: Senna TAB 8.6 mg TAB PO SCH (21:32)
[2021-11-15] MEDS: Enoxaparin 40 MG/0.4 ML SYR SUBCUT SCH (06:29)
[2021-11-15 08:41] LABS: Hematocrit 24 % (35-47); Hemoglobin 8.2 g/dL (12.0-16.0); Mean Corpuscular HGB Conc 34 g/dL (31-36); Mean Corpuscular Hemoglobin 32 pg (27-31); Mean Corpuscular Volume 93 fL (80-97); Mean Platelet Volume 8.1 fL (7.4-10.4); Platelet Count 292 10^3/uL (150-450); Red Cell Distribution Width 13 % (10-15); White Blood Count 7.3 10^3/uL (3.5-10.8)
[2021-11-15 09:25] LABS: Calcium 8.5 mg/dL (8.6-10.3); Magnesium 1.7 mg/dL (1.9-2.7); eGFR CKD-EPI 94.5 (>60)
[2021-11-15] MEDS ORDERED: Magnesium Sulfate 2 gm BAG 2 GM/50 ML BAG IVPB ONE (10:13)
[2021-11-15] MEDS: Magnesium Hydroxide LIQ 30 ML UDC PO SCH ×2 (10:20→20:02)
[2021-11-15] MEDS: Calcium/Vitamin D TAB 250/125 TAB PO SCH ×2 (10:22→20:43)
[2021-11-15] MEDS: Senna TAB 8.6 mg TAB PO SCH (20:02)
[2021-11-15] MEDS: cefTRIAXone 1 gm/50 mL NS BAG 1 GM/50 ML BAG IVPB SCH (20:44)
[2021-11-16] MEDS: Enoxaparin 40 MG/0.4 ML SYR SUBCUT SCH (05:45)
[2021-11-16 07:01] LABS: ABS Eosinophils 0.3 10^3/ul (0-0.6); ABS Lymphocytes 1.9 10^3/ul (1.0-4.8); ABS Monocytes 0.8 10^3/ul (0-0.8); Eosinophil % 3.7 %; Hematocrit 24 % (35-47); Hemoglobin 8.2 g/dL (12.0-16.0); Lymphocyte % 27.7 %; Mean Corpuscular HGB Conc 34 g/dL (31-36); Mean Corpuscular Hemoglobin 31 pg (27-31); Mean Corpuscular Volume 92 fL (80-97); Mean Platelet Volume 7.8 fL (7.4-10.4); Nucleated Red Blood Cells % 0.1; Platelet Count 325 10^3/uL (150-450); Red Blood Count 2.59 10^6 /uL (3.70-4.87); Red Cell Distribution Width 13 % (10-15)
[2021-11-16 07:42] LABS: Calcium 8.6 mg/dL (8.6-10.3); Magnesium 1.8 mg/dL (1.9-2.7); Potassium 4.9 mmol/L (3.5-5.0); eGFR CKD-EPI 94.1 (>60)
[2021-11-16] MEDS: Calcium/Vitamin D TAB 250/125 TAB PO SCH ×2 (07:56→20:26)
[2021-11-16] MEDS: Magnesium Hydroxide LIQ 30 ML UDC PO SCH ×2 (08:00→20:21)
[2021-11-16] MEDS ORDERED: Magnesium Sulfate 2 gm BAG 2 GM/50 ML BAG IVPB ONE (08:34)
[2021-11-16] MEDS ORDERED: HEMP TOPICAL PRN (12:38)
[2021-11-16] MEDS: Senna TAB 8.6 mg TAB PO SCH (20:21)
[2021-11-17] MEDS: Enoxaparin 40 MG/0.4 ML SYR SUBCUT SCH (05:51)
[2021-11-17 08:17] LABS: Hematocrit 24 % (35-47); Mean Corpuscular HGB Conc 34 g/dL (31-36); Mean Corpuscular Hemoglobin 31 pg (27-31); Mean Corpuscular Volume 92 fL (80-97); Mean Platelet Volume 7.8 fL (7.4-10.4); Platelet Count 353 10^3/uL (150-450); Red Blood Count 2.57 10^6 /uL (3.70-4.87); Red Cell Distribution Width 13 % (10-15); White Blood Count 6.4 10^3/uL (3.5-10.8)
[2021-11-17 08:59] LABS: Calcium 8.7 mg/dL (8.6-10.3); Magnesium 1.7 mg/dL (1.9-2.7); Potassium 4.9 mmol/L (3.5-5.0); eGFR CKD-EPI 94.5 (>60)
[2021-11-17] MEDS: Calcium/Vitamin D TAB 250/125 TAB PO SCH (10:36)
[2021-11-17] MEDS: Magnesium Hydroxide LIQ 30 ML UDC PO SCH (10:49)
[2021-11-17 11:36] VITALS: BP 122/64
[2021-11-17 12:30] LABS: Rapid COVID-19 Molecular Undetected (Undetected)
== END 2021-11-17 14:10 | DRG 522 ==
LOC: ED 13:50 → EDHOLD 18:08 → SUATTDRO 18:08 → SSU 23:50
PROVIDERS: ADMIT Student in an Organized Health Care Education/Training Program; ATTEND Internal Medicine

== ENCOUNTER 2023-08-10 10:17 | Inpatient (IN) ==
[2023-08-10 11:29] LABS: Albumin 3.6 g/dL (3.2-5.2); Albumin/Globulin Ratio 1.3 (1-3); Calcium 8.7 mg/dL (8.6-10.3); Creatinine, Serum 1.84 mg/dL (0.51-0.95); Globulin 2.8 g/dL (2-4); Potassium 4.7 mmol/L (3.5-5.0); Total Bilirubin 0.2 mg/dL (0.2-1.0); Total Protein 6.4 g/dL (6.4-8.9); eGFR CKD-EPI 27.7 (>60)
[2023-08-10 11:36] LABS: Urine Appearance Turbid; Urine Bilirubin Negative (Negative); Urine Blood Negative (Negative); Urine Color Yellow; Urine Glucose Negative (Negative); Urine Ketones Trace (Negative); Urine Nitrite Negative (Negative); Urine Protein 2+(100 mg/dL) (Negative); Urine Specific Gravity 1.021 (1.002-1.030); Urine Urobilinogen Negative (Negative)
[2023-08-10 11:52] LABS: Urine Bacteria 1+ (Absent); Urine Red Blood Cell 3+(>10/hpf) (Absent); Urine Squamous Epithelial Cell Present (Absent); Urine White Blood Cell 3+(>20/hpf) (Absent)
[2023-08-10] MEDS ORDERED: cefTRIAXone 1 gm/50 mL D5W 1 GM/50 ML BAG IV ONE (12:20)
[2023-08-10 12:23] LABS: High Sensitivity Troponin 1 Hr 7 pg/mL (<15)
[2023-08-10 12:50] LABS: ABS Eosinophils 0.1 10^3/uL (0.0-0.5); ABS Lymphocytes 1.9 10^3/uL (1.0-4.8); ABS Monocytes 0.6 10^3/uL (0.0-0.9); ABS Nucleated RBC 0.01 10^3/ul; Eosinophil % 0.6 %; Hematocrit 14.6 % (35-45); Lymphocyte % 22.2 %; Mean Corpuscular Hemoglobin 27.9 pg (27-33); Mean Corpuscular Hgb Conc 32.6 g/dL (31-36); Mean Corpuscular Volume 85.6 fL (80-97); Mean Platelet Volume 8.2 fL (7.5-11.2); Nucleated Red Blood Cells % 0.1 %/100WBC (0.0-0.8); Platelet Count 552 10^3/uL (150-450); Red Blood Count 1.71 10^6/uL (3.63-4.92); Red Cell Distribution Width 14.2 % (12-17); White Blood Count 8.6 10^3/uL (3.8-11.8)
[2023-08-10 13:07] LABS: Hemoglobin 4.8 g/dL (11.5-14.3)
[2023-08-10] MEDS ORDERED: cefTRIAXone 1 GM ONETIME (ADVAN) IVPB ONE (14:30)
[2023-08-10] MEDS ORDERED: Dextrose 50% Syringe 50 ml 25 GM/50 ML SYRINGE IV PUSH PRN (16:36)
[2023-08-10] MEDS ORDERED: Magnesium Hydroxide LIQ 30 ML UDC PO PRN (17:02)
[2023-08-10] MEDS ORDERED: Pantoprazole VIAL 40 MG VIAL IV ONE (18:05)
[2023-08-10] MEDS: Lactated Ringers 1000 ml BAG 1,000 ML IV SCH (18:22)
[2023-08-10] MEDS: cefTRIAXone 1 gm/50 mL NS BAG 1 GM/50 ML BAG IV SCH (18:42)
[2023-08-10] MEDS: oxyCODONE/Acetamin 5/325 mg TAB PO SCH (20:56)
[2023-08-10] MEDS: Pantoprazole VIAL 40 MG VIAL IV SCH (21:01)
[2023-08-11 02:19] LABS: Hematocrit 22.6 % (35-45); Hemoglobin 7.8 g/dL (11.5-14.3)
[2023-08-11] MEDS: Lactated Ringers 1000 ml BAG 1,000 ML IV SCH (04:48)
[2023-08-11 06:34] LABS: Hematocrit 25.7 % (35-45); Hemoglobin 8.5 g/dL (11.5-14.3); Mean Corpuscular Hemoglobin 28.4 pg (27-33); Mean Corpuscular Hgb Conc 32.9 g/dL (31-36); Mean Corpuscular Volume 86.4 fL (80-97); Mean Platelet Volume 7.7 fL (7.5-11.2); Platelet Count 444 10^3/uL (150-450); Red Blood Count 2.98 10^6/uL (3.63-4.92); Red Cell Distribution Width 15.2 % (12-17); White Blood Count 9.4 10^3/uL (3.8-11.8)
[2023-08-11 06:57] LABS: Calcium 8.5 mg/dL (8.6-10.3); Creatinine, Serum 1.26 mg/dL (0.51-0.95); Magnesium 3.5 mg/dL (1.9-2.7); Potassium 4.4 mmol/L (3.5-5.0); eGFR CKD-EPI 43.7 (>60)
[2023-08-11] MEDS: Pantoprazole VIAL 40 MG VIAL IV SCH ×2 (08:16→22:41)
[2023-08-11] MEDS: oxyCODONE/Acetamin 5/325 mg TAB PO SCH ×2 (08:22→22:47)
[2023-08-11] MEDS ORDERED: Naloxone 0.4 mg VIAL 0.4 mg/ml 1 ml VIAL IV PRN (14:44)
[2023-08-11] MEDS ORDERED: Lidocaine 2% PF 5 ML VIAL ONE (16:30)
[2023-08-11] MEDS: cefTRIAXone 1 gm/50 mL NS BAG 1 GM/50 ML BAG IV SCH (18:05)
[2023-08-11] MEDS: Senna TAB 8.6 mg TAB PO PRN (22:46)
[2023-08-12 08:18] LABS: Hematocrit 21.4 % (35-45); Hemoglobin 7.3 g/dL (11.5-14.3); Mean Corpuscular Hemoglobin 28.8 pg (27-33); Mean Corpuscular Volume 84.6 fL (80-97); Mean Platelet Volume 7.8 fL (7.5-11.2); Platelet Count 425 10^3/uL (150-450); Red Blood Count 2.53 10^6/uL (3.63-4.92); Red Cell Distribution Width 15.3 % (12-17)
[2023-08-12 08:46] LABS: Calcium 8.8 mg/dL (8.6-10.3); Creatinine, Serum 0.88 mg/dL (0.51-0.95); Potassium 3.9 mmol/L (3.5-5.0); eGFR CKD-EPI 67.2 (>60)
[2023-08-12 10:18] LABS: Folate 3.63 ng/mL (5.90-24.80)
[2023-08-12] MEDS: oxyCODONE/Acetamin 5/325 mg TAB PO SCH ×3 (10:22→20:40)
[2023-08-12 15:57] LABS: Ferritin 33.4 ng/mL (11-307)
[2023-08-12] MEDS: cefTRIAXone 1 gm/50 mL NS BAG 1 GM/50 ML BAG IV SCH (16:40)
[2023-08-13 06:55] LABS: ABS Basophils 0.1 10^3/uL (0.0-0.1); ABS Eosinophils 0.1 10^3/uL (0.0-0.5); ABS Lymphocytes 3.2 10^3/uL (1.0-4.8); ABS Monocytes 0.7 10^3/uL (0.0-0.9); ABS Neutrophils 4.1 10^3/uL (1.5-7.6); ABS Nucleated RBC 0.01 10^3/ul; Eosinophil % 1.3 %; Hemoglobin 6.4 g/dL (11.5-14.3); Lymphocyte % 39.2 %; Mean Corpuscular Hemoglobin 28.7 pg (27-33); Mean Corpuscular Volume 84.3 fL (80-97); Mean Platelet Volume 7.7 fL (7.5-11.2); Nucleated Red Blood Cells % 0.1 %/100WBC (0.0-0.8); Platelet Count 389 10^3/uL (150-450); Red Blood Count 2.25 10^6/uL (3.63-4.92); White Blood Count 8.1 10^3/uL (3.8-11.8)
[2023-08-13] MEDS: NS 0.9% 1000 ml BAG 1,000 ML IV SCH (10:30)
[2023-08-13] MEDS: oxyCODONE/Acetamin 5/325 mg TAB PO SCH ×2 (11:08→21:32)
[2023-08-13 13:05] LABS: Immunoglobulin A 220 mg/dL (61 - 356)
[2023-08-13 16:28] LABS: Tissue Transglutaminase IgA Ab <1.2 U/mL
[2023-08-13] MEDS: cefTRIAXone 1 gm/50 mL NS BAG 1 GM/50 ML BAG IV SCH (17:18)
[2023-08-13 20:30] LABS: Hematocrit 21.5 % (35-45); Hemoglobin 7.3 g/dL (11.5-14.3)
[2023-08-14 07:54] LABS: ABS Eosinophils 0.2 10^3/uL (0.0-0.5); ABS Monocytes 0.6 10^3/uL (0.0-0.9); ABS Neutrophils 4.3 10^3/uL (1.5-7.6); Eosinophil % 2.6 %; Hemoglobin 6.7 g/dL (11.5-14.3); Lymphocyte % 36.9 %; Mean Corpuscular Hemoglobin 28.9 pg (27-33); Mean Corpuscular Hgb Conc 33.7 g/dL (31-36); Mean Corpuscular Volume 85.6 fL (80-97); Mean Platelet Volume 7.9 fL (7.5-11.2); Platelet Count 329 10^3/uL (150-450); Red Blood Count 2.34 10^6/uL (3.63-4.92); Red Cell Distribution Width 15.1 % (12-17); White Blood Count 8.1 10^3/uL (3.8-11.8)
[2023-08-14 08:14] LABS: Calcium 8.2 mg/dL (8.6-10.3); Creatinine, Serum 0.62 mg/dL (0.51-0.95); Potassium 3.7 mmol/L (3.5-5.0); eGFR CKD-EPI 91.1 (>60)
[2023-08-14] MEDS: oxyCODONE/Acetamin 5/325 mg TAB PO SCH ×2 (09:22→20:10)
[2023-08-14] MEDS: NS 0.9% 1000 ml BAG 1,000 ML IV SCH ×2 (13:21)
[2023-08-14] MEDS: cefTRIAXone 1 gm/50 mL NS BAG 1 GM/50 ML BAG IV SCH (16:43)
[2023-08-15] MEDS: NS 0.9% 1000 ml BAG 1,000 ML IV SCH (03:11)
[2023-08-15 06:34] LABS: ABS Eosinophils 0.3 10^3/uL (0.0-0.5); ABS Lymphocytes 2.1 10^3/uL (1.0-4.8); ABS Monocytes 0.5 10^3/uL (0.0-0.9); Eosinophil % 3.7 %; Hematocrit 21.3 % (35-45); Hemoglobin 7.3 g/dL (11.5-14.3); Lymphocyte % 30.5 %; Mean Corpuscular Hemoglobin 30.2 pg (27-33); Mean Corpuscular Hgb Conc 34.5 g/dL (31-36); Mean Corpuscular Volume 87.7 fL (80-97); Mean Platelet Volume 7.9 fL (7.5-11.2); Nucleated Red Blood Cells % 0.1 %/100WBC (0.0-0.8); Platelet Count 283 10^3/uL (150-450); Red Blood Count 2.43 10^6/uL (3.63-4.92); Red Cell Distribution Width 14.5 % (12-17); White Blood Count 6.9 10^3/uL (3.8-11.8)
[2023-08-15] MEDS: oxyCODONE/Acetamin 5/325 mg TAB PO SCH ×2 (12:30→19:57)
[2023-08-15] MEDS: cefTRIAXone 1 gm/50 mL NS BAG 1 GM/50 ML BAG IV SCH (16:41)
[2023-08-15] MEDS: Senna TAB 8.6 mg TAB PO PRN (19:57)
[2023-08-16 07:02] LABS: ABS Eosinophils 0.3 10^3/uL (0.0-0.5); ABS Lymphocytes 2.2 10^3/uL (1.0-4.8); ABS Monocytes 0.6 10^3/uL (0.0-0.9); ABS Neutrophils 3.7 10^3/uL (1.5-7.6); Eosinophil % 3.7 %; Hemoglobin 8.2 g/dL (11.5-14.3); Lymphocyte % 32.7 %; Mean Corpuscular Hemoglobin 30.3 pg (27-33); Mean Corpuscular Hgb Conc 34.2 g/dL (31-36); Mean Corpuscular Volume 88.8 fL (80-97); Mean Platelet Volume 8.1 fL (7.5-11.2); Platelet Count 297 10^3/uL (150-450); Red Blood Count 2.71 10^6/uL (3.63-4.92); Red Cell Distribution Width 14.9 % (12-17); White Blood Count 6.8 10^3/uL (3.8-11.8)
[2023-08-16 07:17] LABS: Calcium 8.5 mg/dL (8.6-10.3); Creatinine, Serum 0.48 mg/dL (0.51-0.95); Magnesium 1.8 mg/dL (1.9-2.7); Potassium 3.8 mmol/L (3.5-5.0); eGFR CKD-EPI 96.9 (>60)
[2023-08-16 09:13] VITALS: BP 152/72
[2023-08-16] MEDS: oxyCODONE/Acetamin 5/325 mg TAB PO SCH (10:28)
[2023-08-16 10:57] LABS: Rapid COVID-19 Molecular Undetected (Undetected)
== END 2023-08-16 13:20 | DRG 377 ==
LOC: ED 10:17 → EDHOLD 15:23 → SUATTDRO 15:23 → MED 08-11 13:12
PROVIDERS: ADMIT Student in an Organized Health Care Education/Training Program; ATTEND Hospitalist
PROC: O.GIEGD (2023-08-11 14:05)

== ENCOUNTER 2023-09-13 09:57 | Inpatient (IN) ==
[2023-09-13] MEDS ORDERED: Lactated Ringers 1000 ml BAG 1,000 ML IV ONE ×2 (10:36→17:17)
[2023-09-13] MEDS ORDERED: Cefepime 2 GM in Dextrose 2 GM/50 ML BAG IV ONE (10:37)
[2023-09-13] MEDS ORDERED: metroNIDAZOLE IV 500 MG/100ML 500 MG/100 ML BAG IVPB ONE (10:37)
[2023-09-13] MEDS ORDERED: Vancomycin 1,000 MG in NS 0.9% 250 ml 250 ML IVPB ONE (11:00)
[2023-09-13 11:29] LABS: ABS Basophils 0.1 10^3/uL (0.0-0.1); ABS Lymphocytes 1.9 10^3/uL (1.0-4.8); ABS Monocytes 0.8 10^3/uL (0.0-0.9); ABS Neutrophils 17.4 10^3/uL (1.5-7.6); ABS Nucleated RBC 0.01 10^3/ul; Hematocrit 27.5 % (35-45); Hemoglobin 8.7 g/dL (11.5-14.3); Lymphocyte % 9.3 %; Mean Corpuscular Hemoglobin 28.5 pg (27-33); Mean Corpuscular Hgb Conc 31.6 g/dL (31-36); Mean Corpuscular Volume 90.2 fL (80-97); Mean Platelet Volume 9.9 fL (7.5-11.2); Platelet Count 520 10^3/uL (150-450); Red Blood Count 3.05 10^6/uL (3.63-4.92); Red Cell Distribution Width 17.9 % (12-17); White Blood Count 20.2 10^3/uL (3.8-11.8)
[2023-09-13 11:53] LABS: Activated Partial Thrombo Time 51.6 seconds (26.0-38.0); INR 3.97 (0.83-1.13)
[2023-09-13 12:11] LABS: Albumin 3.7 g/dL (3.2-5.2); Albumin/Globulin Ratio 0.9 (1-3); C Reactive Protein 134.21 mg/L (<8.01); Calcium 9.8 mg/dL (8.6-10.3); Creatinine, Serum 1.93 mg/dL (0.51-0.95); Globulin 3.9 g/dL (2-4); Potassium 6.4 mmol/L (3.5-5.0); Total Bilirubin 0.2 mg/dL (0.2-1.0); Total Protein 7.6 g/dL (6.4-8.9); eGFR CKD-EPI 26.2 (>60)
[2023-09-13] MEDS ORDERED: Dextrose 50% Syringe 50 ml 25 GM/50 ML SYRINGE IV PUSH ONE (12:14)
[2023-09-13 12:26] LABS: High Sensitivity Troponin 1 Hr 21 pg/mL (<15)
[2023-09-13] MEDS ORDERED: Heparin 5000 UNITS/ML 1 mL VIAL SUBCUT SCH (15:00)
[2023-09-13] MEDS ORDERED: SODIUM ZIRCONIUM CYCLOSILICATE 10 GM PACKET PO ONE (15:14)
[2023-09-13] MEDS ORDERED: Calcium Gluconate 1 GM/10 ML VIAL (in Pyxis) IV PUSH ONE (15:15)
[2023-09-13] MEDS ORDERED: Dextrose 50% Syringe 50 ml 25 GM/50 ML SYRINGE IV PUSH PRN (15:51)
[2023-09-13] MEDS ORDERED: CALCIUM GLUCONATE 1GM/50ML NS BAG IV ONE (16:00)
[2023-09-13 16:45] LABS: Albumin 3.3 g/dL (3.2-5.2); Calcium 9.2 mg/dL (8.6-10.3); Creatinine, Serum 1.94 mg/dL (0.51-0.95); Globulin 3.2 g/dL (2-4); Potassium 5.2 mmol/L (3.5-5.0); Total Bilirubin 0.2 mg/dL (0.2-1.0); Total Protein 6.5 g/dL (6.4-8.9)
[2023-09-13] MEDS ORDERED: Magnesium Hydroxide LIQ 30 ML UDC PO PRN (16:46)
[2023-09-13] MEDS ORDERED: Senna TAB 8.6 mg TAB PO PRN (16:46)
[2023-09-13] MEDS ORDERED: Glycerin ADULT 2.4 gm SUPP PR PRN (16:46)
[2023-09-13] MEDS ORDERED: Sodium Phosphate ADULT ENEMA 133 ML BTL PR PRN (16:46)
[2023-09-13] MEDS ORDERED: oxyCODONE/Acetamin 5/325 mg TAB PO PRN (18:00)
[2023-09-13] MEDS: cefTRIAXone 1 gm/50 mL D5W 1 GM/50 ML BAG IV SCH (18:11)
[2023-09-13] MEDS ORDERED: Lactated Ringers 1000 ml BAG 1,000 ML IV SCH (19:00)
[2023-09-13] MEDS: Lactated Ringers 1000 ml BAG 1,000 ML IV SCH (19:47)
[2023-09-13 20:20] LABS: Ferritin 50.4 ng/mL (11-307)
[2023-09-13] MEDS ORDERED: Furosemide 20 mg/2 ml IV VIAL IV SLOW PU ONE (21:55)
[2023-09-13 21:57] LABS: Calcium 9.1 mg/dL (8.6-10.3); Creatinine, Serum 1.96 mg/dL (0.51-0.95); Potassium 5.3 mmol/L (3.5-5.0); eGFR CKD-EPI 25.7 (>60)
[2023-09-14] MEDS: Lactated Ringers 1000 ml BAG 1,000 ML IV SCH ×2 (01:34→11:42)
[2023-09-14 03:51] LABS: Urine Appearance Cloudy; Urine Bilirubin Negative (Negative); Urine Blood 2+ (Negative); Urine Color Yellow; Urine Glucose Negative (Negative); Urine Ketones Trace (Negative); Urine Nitrite Negative (Negative); Urine Protein 2+(100 mg/dL) (Negative); Urine Specific Gravity 1.013 (1.002-1.030); Urine Urobilinogen Negative (Negative)
[2023-09-14 04:05] LABS: Urine Bacteria 1+ (Absent); Urine Red Blood Cell 3+(>10/hpf) (Absent); Urine White Blood Cell 2+(11-20/hpf) (Absent)
[2023-09-14] MEDS ORDERED: Enoxaparin 30 MG/0.3 ML SYR SUBCUT SCH (06:00)
[2023-09-14 06:29] LABS: ABS Basophils 0.1 10^3/uL (0.0-0.1); ABS Eosinophils 0.1 10^3/uL (0.0-0.5); ABS Lymphocytes 1.7 10^3/uL (1.0-4.8); ABS Monocytes 0.7 10^3/uL (0.0-0.9); ABS Neutrophils 12.7 10^3/uL (1.5-7.6); ABS Nucleated RBC 0.01 10^3/ul; Eosinophil % 0.9 %; Hematocrit 20.5 % (35-45); Hemoglobin 6.7 g/dL (11.5-14.3); Lymphocyte % 11.2 %; Mean Corpuscular Hgb Conc 32.5 g/dL (31-36); Mean Corpuscular Volume 89.2 fL (80-97); Mean Platelet Volume 9.8 fL (7.5-11.2); Nucleated Red Blood Cells % 0.1 %/100WBC (0.0-0.8); Platelet Count 329 10^3/uL (150-450); Red Blood Count 2.29 10^6/uL (3.63-4.92); Red Cell Distribution Width 17.7 % (12-17); White Blood Count 15.3 10^3/uL (3.8-11.8)
[2023-09-14 06:45] LABS: Calcium 8.8 mg/dL (8.6-10.3); Creatinine, Serum 1.81 mg/dL (0.51-0.95); Magnesium 2.5 mg/dL (1.9-2.7); Potassium 4.6 mmol/L (3.5-5.0); eGFR CKD-EPI 28.3 (>60)
[2023-09-14] MEDS ORDERED: Pantoprazole VIAL 40 MG VIAL IV SCH (09:00)
[2023-09-14] MEDS ORDERED: Iron Sucrose 200 MG in NS 0.9% 100 ml BAG 100 ML IVPB SCH (09:00)
[2023-09-14] MEDS ORDERED: Ferric Gluconate IV 250 MG in NS 0.9% 250 ml 200 ML IVPB SCH (10:00)
[2023-09-14] MEDS ORDERED: Lidocaine 1% MPF 5 ML VIAL INJ ONE (11:45)
[2023-09-14] MEDS: cefTRIAXone 1 gm/50 mL D5W 1 GM/50 ML BAG IV SCH (17:01)
[2023-09-14] MEDS: Ferric Gluconate IV 250 MG in NS 0.9% 250 ml 200 ML IVPB SCH (17:48)
[2023-09-15 00:23] LABS: Hemoglobin 7.4 g/dL (11.5-14.3)
[2023-09-15] MEDS: Lactated Ringers 1000 ml BAG 1,000 ML IV SCH (02:57)
[2023-09-15 06:56] LABS: ABS Basophils 0.1 10^3/uL (0.0-0.1); ABS Eosinophils 0.3 10^3/uL (0.0-0.5); ABS Lymphocytes 2.1 10^3/uL (1.0-4.8); ABS Monocytes 0.7 10^3/uL (0.0-0.9); ABS Neutrophils 8.6 10^3/uL (1.5-7.6); ABS Nucleated RBC 0.02 10^3/ul; Eosinophil % 2.9 %; Hematocrit 23.1 % (35-45); Hemoglobin 7.5 g/dL (11.5-14.3); Lymphocyte % 17.6 %; Mean Corpuscular Hemoglobin 28.6 pg (27-33); Mean Corpuscular Hgb Conc 32.5 g/dL (31-36); Mean Corpuscular Volume 87.8 fL (80-97); Mean Platelet Volume 10.1 fL (7.5-11.2); Nucleated Red Blood Cells % 0.2 %/100WBC (0.0-0.8); Platelet Count 295 10^3/uL (150-450); Red Blood Count 2.63 10^6/uL (3.63-4.92); Red Cell Distribution Width 17.3 % (12-17); White Blood Count 11.7 10^3/uL (3.8-11.8)
[2023-09-15 07:08] LABS: Calcium 8.7 mg/dL (8.6-10.3); Creatinine, Serum 1.15 mg/dL (0.51-0.95); Magnesium 2.2 mg/dL (1.9-2.7); Potassium 4.4 mmol/L (3.5-5.0); eGFR CKD-EPI 48.8 (>60)
[2023-09-15] MEDS ORDERED: Enoxaparin 40 MG/0.4 ML SYR SUBCUT SCH (10:00)
[2023-09-15] MEDS ORDERED: PEG 3000 GI LAVAGE 1 GALLON PO ONE (11:37)
[2023-09-15] MEDS: Pantoprazole VIAL 40 MG VIAL IV SCH (13:15)
[2023-09-15] MEDS: Ferric Gluconate IV 250 MG in NS 0.9% 250 ml 200 ML IVPB SCH (17:45)
[2023-09-16] MEDS: Pantoprazole VIAL 40 MG VIAL IV SCH ×3 (00:19→22:18)
[2023-09-16 00:25] LABS: Hematocrit 21.8 % (35-45); Hemoglobin 7.4 g/dL (11.5-14.3)
[2023-09-16 06:10] LABS: ABS Basophils 0.1 10^3/uL (0.0-0.1); ABS Eosinophils 0.1 10^3/uL (0.0-0.5); ABS Lymphocytes 2.2 10^3/uL (1.0-4.8); ABS Monocytes 0.4 10^3/uL (0.0-0.9); ABS Neutrophils 4.6 10^3/uL (1.5-7.6); ABS Nucleated RBC 0.01 10^3/ul; Hematocrit 20.7 % (35-45); Hemoglobin 7.1 g/dL (11.5-14.3); Lymphocyte % 29.3 %; Mean Corpuscular Hemoglobin 29.9 pg (27-33); Mean Corpuscular Hgb Conc 34.2 g/dL (31-36); Mean Corpuscular Volume 87.5 fL (80-97); Mean Platelet Volume 9.6 fL (7.5-11.2); Nucleated Red Blood Cells % 0.1 %/100WBC (0.0-0.8); Platelet Count 306 10^3/uL (150-450); Red Blood Count 2.37 10^6/uL (3.63-4.92); Red Cell Distribution Width 17.7 % (12-17); White Blood Count 7.5 10^3/uL (3.8-11.8)
[2023-09-16 06:33] LABS: Anion Gap 12 mmol/L (2-16); Blood Urea Nitrogen 33 mg/dL (6-24); CO2 Carbon Dioxide 25 mmol/L (22-32); Calcium 8.7 mg/dL (8.6-10.3); Chloride 108 mmol/L (101-111); Creatinine, Serum 0.67 mg/dL (0.51-0.95); Glucose 129 mg/dL (70-100); Magnesium 1.9 mg/dL (1.9-2.7); Sodium 145 mmol/L (135-145); eGFR CKD-EPI 89.4 (>60)
[2023-09-16] MEDS ORDERED: Magnesium Sulfate IV 1GM/100ML 1 GM/100 ML BAG IV ONE (08:53)
[2023-09-16] MEDS: KCL 20 MEQ/100 ML IVPREMIX 20 MEQ/100 ML BAG IV SCH ×2 (12:45→14:33)
[2023-09-16] MEDS: Ferric Gluconate IV 250 MG in NS 0.9% 250 ml 200 ML IVPB SCH (18:08)
[2023-09-17 08:33] LABS: ABS Eosinophils 0.1 10^3/uL (0.0-0.5); ABS Lymphocytes 2.5 10^3/uL (1.0-4.8); ABS Monocytes 0.6 10^3/uL (0.0-0.9); ABS Neutrophils 3.4 10^3/uL (1.5-7.6); ABS Nucleated RBC 0.02 10^3/ul; Eosinophil % 1.5 %; Hematocrit 20.7 % (35-45); Hemoglobin 6.8 g/dL (11.5-14.3); Lymphocyte % 37.9 %; Mean Corpuscular Hemoglobin 28.9 pg (27-33); Mean Corpuscular Volume 87.5 fL (80-97); Mean Platelet Volume 8.8 fL (7.5-11.2); Nucleated Red Blood Cells % 0.2 %/100WBC (0.0-0.8); Platelet Count 330 10^3/uL (150-450); Red Blood Count 2.37 10^6/uL (3.63-4.92); Red Cell Distribution Width 17.4 % (12-17); White Blood Count 6.6 10^3/uL (3.8-11.8)
[2023-09-17 08:49] LABS: Calcium 8.5 mg/dL (8.6-10.3); Creatinine, Serum 0.52 mg/dL (0.51-0.95); Magnesium 1.6 mg/dL (1.9-2.7); Potassium 3.4 mmol/L (3.5-5.0)
[2023-09-17] MEDS: Pantoprazole VIAL 40 MG VIAL IV SCH (09:53)
[2023-09-17] MEDS ORDERED: Morphine ORAL CONCENTRATE 5 MG/0.25 ML ORAL.SYRIN SL PRN (16:38)
[2023-09-17] MEDS ORDERED: Ondansetron ODT 4 mg TAB 4 MG TAB SL PRN (16:38)
[2023-09-17] MEDS ORDERED: Atropine 1% (ORAL/SL) 15 ML BTL SL PRN (16:38)
[2023-09-17] MEDS ORDERED: Haloperidol 5 mg/ml SDV IV/IM 5 MG/ML AMP IM PRN (16:38)
[2023-09-18] MEDS: Morphine ORAL CONCENTRATE 5 MG/0.25 ML ORAL.SYRIN SL PRN (11:26)
[2023-09-20 06:37] VITALS: BP 142/81
[2023-09-20] MEDS: Morphine ORAL CONCENTRATE 5 MG/0.25 ML ORAL.SYRIN SL PRN (13:16)
== END 2023-09-20 13:30 | DRG 871 ==
LOC: ED 09:57 → SUATTDRO 14:12 → EDHOLD 14:12 → MED 15:02 → SSU 09-19 05:48
PROVIDERS: ADMIT Student in an Organized Health Care Education/Training Program; ATTEND Internal Medicine